=== PATIENT | male | born 1940 | race African-American/Black ===

== ENCOUNTER 2018-06-05 07:51 | Outpatient (CLI) | payer BC, MEDICARE ==
[2018-06-05 13:57] LABS: #Basophils 0.1 thou/uL (0.0-0.2); #Eosinphils 0.1 thou/uL (0.0-0.7); #Lymphocytes 1.4 thou/uL (1.20-3.40); #Monocytes 0.5 thou/uL (0.11-0.59); #Neutrophils 3.2 thou/uL (1.40-6.50); %Basophils 1.3 % (0.0-1.0); %Eosinophils 2.5 % (0.0-10.0); %Lymphocytes 26.3 % (21.0-51.0); %Monocytes 9.3 % (0.0-10.0); %Neutrophils 60.7 % (42.0-75.0); Hemoglobin 16.4 g/dL (14.0-18.0); Mean Corpuscular HGB CONC 32.5 g/dL (32.0-36.0); Mean Corpuscular Hemoglobin 31.3 pg (27.0-31.0); Mean Corpuscular Volume 96.4 fL (78.0-98.0); Mean Platelet Volume 8.9 fL (7.4-10.4); Platelet Count 184 thou/uL (130-400); RBC Distribution Width 12.6 % (11.5-14.5); Red Blood Cell (RBC) Count 5.24 mill/uL (4.70-6.10); White Blood Cell (WBC) Count 5.3 thou/uL (4.8-10.8)
[2018-06-05 14:01] LABS: Bilirubin Negative (Negative); Blood, Urine Negative (Negative); Clarity CLEAR (Clear); Glucose, Urine (Dipstick) Negative (Negative); Leukocyte Negative (Negative); Nitrite Negative (Negative); Protein, Urine (Dipstick) Negative (Neg-Trace); Specific Gravity, Urine 1.027 (1.002-1.036); Urobilinogen 0.2 mg/dL (0.2-1.0); pH, Urine 5.5 (5.0-9.0)
[2018-06-05 14:04] LABS: Prothrombin Time 12.8 SEC (12.0-14.7)
[2018-06-05 14:05] LABS: Bacteria/HPF None Seen HPF (None Seen); Hyaline Casts/LPF 0-3 HYALINE CAST LPF (0-3 Hyaline); Pathc Cast-AUWi Flag 0.14 (0-2.49); RBC/HPF 0-3 HPF (0-3); Squamous Epithelial None Seen HPF (0-3); WBC/HPF None Seen HPF (0-3)
[2018-06-05 14:17] LABS: Anion Gap 12 mmol/L (10-20); BUN (Urea Nitrogen) 19 mg/dL (8.4-25.7); Calc. Creatinine Clearance 0 mL/min (70-130); Calcium 10.3 mg/dL (7.8-10.44); Carbon Dioxide 23 mmol/L (23-31); Chloride 106 mmol/L (98-107); Estimated GFR-MDRD 88; Glucose 109 mg/dL (83-110); Potassium 4.2 mmol/L (3.5-5.1); Sodium 137 mmol/L (136-145)
--- NOTE | 2018-06-05 17:11 | EKG ---
Test Reason : Blood Pressure : / mmHG Vent. Rate : 060 BPM Atrial Rate : 060 BPM P-R Int : 226 ms QRS Dur : 088 ms QT Int : 378 ms P-R-T Axes : 060 063 049 degrees QTc Int : 378 ms Sinus rhythm with 1st degree A-V block Possible Anterior infarct , age undetermined Abnormal ECG When compared with ECG of 20-MAR-2016 09:36, No significant change was found Confirmed by ARDEN PARKER, . SRosmery ([id number]) on 06/05/2018 5:11:15 PM Referred By: CLIFTON Confirmed By:DR. Blanca HER MD
== END 2018-06-05 07:52 | disposition home or self-care (01) ==
LOC: LABBT 07:51
PROVIDERS: ATTEND Orthopaedic Surgery
DX: Z01.818 Encounter for other preprocedural examination (principal); M16.11 Unilateral primary osteoarthritis, right hip
CPT/HCPCS: 80048; 81001; 85025; 85610; 87081; 93005; 93010

== ENCOUNTER 2018-06-05 13:15 | Inpatient (IN) | payer BC, MEDICARE ==
--- NOTE | 2018-06-12 09:01 | HP ---
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 Pain is now progressed to the point it is causing difficulty getting dressed, getting in and out of vehicle, and putting shoes on and walking. He has had previous left total hip replacement in March 2016 with good results. PAST MEDICAL HISTORY: The patient has had previous left total hip replacement and right total knee replacement. He has a history of chronic back pain, controlled with a spinal cord stimulator placed by Dr. Gallagher. He had a history of hypertension. CURRENT MEDICATIONS: Include, 1. Amlodipine. 2. Valsartan. 3. Meloxicam. ALLERGIES: HE HAS NO KNOWN ALLERGIES. FAMILY HISTORY: Otherwise unremarkable. SOCIAL HISTORY: Otherwise unremarkable. REVIEW OF SYSTEMS: Otherwise unremarkable. PHYSICAL EXAMINATION: GENERAL: Healthy male. HEENT: Unremarkable. NECK: Supple. CHEST: Clear. HEART: Regular rate and rhythm. ABDOMEN: Soft and nontender. RECTAL: Deferred. GENITAL: Deferred. EXTREMITIES: Pertinent findings related to the right hip. Leg length appeared to be equal. There is tenderness in the anterior hip. There is decreased range of motion of the right hip and groin pain with internal rotation. There is a right antalgic gait. NEUROVASCULAR: Intact. DIAGNOSTIC STUDIES: X-rays of the right hip revealed severe degenerative arthritis with no joint space remaining with progression from previous x-rays. IMPRESSION: 1. Degenerative arthritis of the right hip. 2. Status post left total hip replacement. 3. Status post right total knee replacement. 4. History of hypertension. PLAN: Right total hip replacement. The nature of the surgery, length of recovery, and potential complications such as infection, loss of motion, incomplete relief, neurovascular injury, thromboembolic phenomena, leg length discrepancy, possible transfusion, and need for revision have been discussed in detail. Job ID: [id number]
[2018-07-10 09:16] VITALS: BMI 30.4
--- NOTE | 2018-07-17 09:19 | HP ---
HISTORY OF PRESENT ILLNESS: The patient is a 78-year-old male with a long history of progressive problems with his right hip injury. He has had progressive symptoms despite rest, restriction of activities, lifestyle adjustments, and use of a cane. He was scheduled for total hip replacement several weeks ago, but had a flare-up of gout in his left knee and left foot, and this has now resolved with the use of indomethacin. He has continued to have progressive problems with his right hip and is admitted at this time for a total hip replacement. PAST MEDICAL HISTORY: Please see the old chart. The patient has had previous left total hip replacement and right total knee replacement with good results. The patient has a history of chronic back problems and has a spinal cord stimulator. He has had previous carpal tunnel release. He has a history of hypertension and gout. MEDICATIONS: Include: 1. Amlodipine. 2. Indomethacin, which will be followed by use of resumption of meloxicam after he is finished with this. 3. Hydrocodone for pain. ALLERGIES: HE HAS NO KNOWN ALLERGIES. FAMILY HISTORY: Otherwise, unremarkable. SOCIAL HISTORY: Otherwise, unremarkable. REVIEW OF SYSTEMS: Otherwise, unremarkable. PHYSICAL EXAMINATION: GENERAL: A healthy male. HEENT: Unremarkable. NECK: Supple. CHEST: Clear. HEART: Regular rate and rhythm. ABDOMEN: Soft and nontender. RECTAL: Deferred. GENITAL: Deferred. EXTREMITIES: Pertinent findings related to the right hip. Leg lengths are equal. There is tenderness in the right groin. There is a right antalgic gait. There is decreased range of motion of the right hip and groin pain with internal rotation. NEUROVASCULAR: Intact. DIAGNOSTIC STUDIES: X-rays of the right hip revealed severe degenerative arthritis. IMPRESSION: 1. Degenerative arthritis, right hip. 2. Status post left total hip replacement. 3. Status post right total knee replacement. 4. History of gout. 5. History of hypertension. PLAN: Right total hip replacement. The nature of the surgery, length of recovery, and potential complications such as infection, loss of motion, incomplete relief, thromboembolic phenomenon, leg length discrepancy, possible transfusion, and need for revision have been discussed in detail with the patient and his . Job ID: [id number]
[2018-07-21] MEDS ORDERED: Vancomycin HCl 1.5 GM in Sodium Chloride 0.9% 250 ML 300 ML IVPB SCH ×2 (08:00→20:00)
[2018-07-21] MEDS ORDERED: CEFAZOLIN 2 GM in Premix Bag 1 BAG IVPB SCH (08:00)
[2018-07-21] MEDS ORDERED: Tranexamic Acid 1,000 MG/10 ML VIAL ONE ×2 (08:06→11:12)
[2018-07-21] MEDS ORDERED: Sodium Chloride 0.9% 100 ML ONE (08:06)
[2018-07-21] MEDS ORDERED: Fentanyl 100 MCG/2 ML VIAL ONE ×3 (09:25→11:13)
[2018-07-21] MEDS ORDERED: diphenhydrAMINE 50 MG/ML VIAL IVP PRN (10:14)
[2018-07-21] MEDS ORDERED: Promethazine HCl 25 MG/ML VIAL IM PRN ×2 (10:14)
[2018-07-21] MEDS ORDERED: Naloxone HCl 0.4 mg/ml Vial IV PRN (10:14)
[2018-07-21] MEDS ORDERED: Zolpidem Tartrate 5 MG TAB PO PRN ×2 (10:14→12:19)
[2018-07-21] MEDS ORDERED: diphenhydrAMINE 50 MG/ML VIAL IM PRN (10:14)
[2018-07-21] MEDS ORDERED: Ondansetron PF 4 MG/2 ML Vial IVP PRN ×2 (10:14→12:19)
[2018-07-21] MEDS ORDERED: Ondansetron HCl/PF 4 MG/2 ML Vial IVP PRN (10:14)
[2018-07-21] MEDS ORDERED: diphenhydrAMINE 25 MG CAP PO PRN ×2 (10:14→12:19)
[2018-07-21] MEDS ORDERED: fentaNYL Citrate/PF 2,000 MCG in Sodium Chloride 0.9% 60 ML IV PRN (10:14)
[2018-07-21] MEDS ORDERED: Promethazine HCl 25 MG/ML VIAL SLOW IVP PRN ×2 (10:14→12:19)
[2018-07-21] MEDS ORDERED: Communication Order-Pharmacy FS SCH (10:15)
[2018-07-21] MEDS ORDERED: Lidocaine 1% PF 5 ML VIAL ONE (10:31)
[2018-07-21] MEDS ORDERED: ePHEDrine 50 MG/ML VIAL ONE (10:31)
[2018-07-21] MEDS ORDERED: Glycopyrrolate 0.2 MG/ML 5 ML SYRINGE ONE (10:31)
[2018-07-21] MEDS ORDERED: Rocuronium Bromide 10 MG/ML (10ML VIAL) ONE (10:31)
[2018-07-21] MEDS ORDERED: Ondansetron PF 4 MG/2 ML Vial ONE (10:31)
[2018-07-21] MEDS ORDERED: PROPOFOL 200 MG/20 ML VIAL ONE (10:31)
[2018-07-21] MEDS ORDERED: Tranexamic Acid 1,000 MG in Sodium Chloride 0.9% 100 ML IVPB SCH ×2 (11:15→12:19)
[2018-07-21] MEDS ORDERED: Fentanyl 100 MCG/2 ML VIAL SLOW IVP PRN ×2 (12:19)
[2018-07-21] MEDS ORDERED: Acetaminophen 325 MG TAB PO PRN (12:19)
[2018-07-21] MEDS ORDERED: Milk Of Magnesia 30 ML UDCUP PO PRN (12:19)
[2018-07-21] MEDS ORDERED: HYDROcodone/Acetaminophen 10/325 mg Tablet PO PRN ×2 (12:19)
[2018-07-21] MEDS ORDERED: traMADol HCl 50 MG TAB PO PRN (12:19)
[2018-07-21] MEDS ORDERED: Multivitamin W/ Minerals 1 TAB PO SCH (12:30)
[2018-07-21] MEDS ORDERED: Aspirin 81 mg Enteric Coated Tablet PO SCH (12:30)
[2018-07-21] MEDS ORDERED: Ferrous Gluconate 324 MG TAB PO SCH (12:30)
[2018-07-21] MEDS ORDERED: Senokot S 8.6-50 MG TAB PO SCH (12:30)
[2018-07-21] MEDS: Sodium Chloride 0.9% 1,000 ML IV SCH ×2 (12:33→21:17)
[2018-07-21] MEDS ORDERED: Amlodipine 5 MG TAB PO SCH (12:45)
[2018-07-21] MEDS ORDERED: Valsartan 80 MG TAB PO SCH (12:45)
[2018-07-21] MEDS: Ketorolac Tromethamine 30 MG/ML VIAL IVP SCH ×2 (13:01→17:27)
--- NOTE | 2018-07-21 13:23 | RAD ---
TWO TO 3 VIEW RIGHT HIP: INDICATION: Postop total hip. FINDINGS: Right hip prosthesis is present appropriately aligned without acute hardware complication. There is an electronic device overlying the right pelvis. Soft tissue air is seen. Cross-table view reveals partial visualization of superimposed left hip prosthesis. IMPRESSION: Postoperative right hip without acute hardware complication. POS: [facility]
--- NOTE | 2018-07-21 13:36 | OP ---
DATE OF PROCEDURE: 07/21/2018 FOOD SERVICES MANAGER: Arnold Mcmillan PA-C. ANESTHESIA: General. PREOPERATIVE DIAGNOSIS: Degenerative arthritis, right hip. POSTOPERATIVE DIAGNOSIS: Degenerative arthritis, right hip. PROCEDURE PERFORMED: Right total hip replacement with uncemented [place] Trident PSL acetabular component, 58 mm with X3 polyethylene liner and uncemented [place] Accolade femoral stem #4 with 132 degree neck angle trunnion with 36 mm standard neck length metal femoral head. DESCRIPTION OF PROCEDURE: After satisfactory anesthesia was induced in supine position, sequential compression devices were placed on the nonoperative leg throughout the procedure. The patient was placed in lateral decubitus and this position was held with a hip positioning device. The right hip was then prepped and draped in routine sterile fashion. The hip was approached through a lateral curvilinear incision, centered over the greater trochanter, carried down through the subcutaneous tissues, and bleeding points were controlled with Bovie cautery. IT band and gluteal fascia were split in line with the skin incision. A direct lateral approach to the hip joint was accomplished by dividing the anterior third of the gluteus medius and minimus tendons with the Bovie cautery by reflecting the single flap anteriorly and medially along with the vastus lateralis. Anterior capsulectomy was performed, and the hip was dislocated anteriorly. There was marked degenerative arthritis of the hip. The femoral neck was osteotomized with oscillating saw using a trial prosthesis as a guide. The acetabulum was exposed and cleared of all soft tissue and rim osteophytes. It was then reamed in a sequential fashion with prior reamers down to bleeding subchondral bone to a total of 58 mm. It was felt that a 58 mm Trident PSL outer shell to be placed in a press-fit fashion. The permanent component was then hammered in position, and there was good fit and stability of the implant and the permanent X3 polyethylene liner was then snapped into position. The proximal femur was exposed and opened with a box osteotome and then rasped in sequence to accept a #4 Accolade femoral rasp. Trial reduction with 132 degree neck angle trunnion and the standard neck length, 36 mm head gave appropriate size, fit, and stability. The trial components were removed. It was copiously irrigated with pulsatile lavage. The permanent #4 Accolade stem was then hammered in position. There was good fit and stability. The permanent 36 mm standard neck length metal head was then placed on the trunnion and the hip again reduced and found to be stable. The wound was again irrigated. The abductors were repaired with interrupted #2 Vicryl. The ID band and gluteal fascia were closed with interrupted #2 Vicryl and a running #2 Quill. Subcutaneous tissues were closed with a running 0 Quill suture. The skin closed with running subcuticular 3-0 Monoderm and SurgiSeal skin adhesive. A sterile bulky dressing was applied. The patient turned to the supine position and a pillow placed between his legs. Sequential compression device was placed on the operated leg and he was awakened, taken to the recovery room in stable condition. There were no apparent intraoperative complications. The estimated blood loss was 300 mL. Job ID: [id number]
[2018-07-21] MEDS: CEFAZOLIN 2 GM in Premix Bag 1 BAG IVPB SCH (17:22)
[2018-07-21] MEDS: Aspirin 81 mg Enteric Coated Tablet PO SCH (21:23)
[2018-07-21] MEDS: Senokot S 8.6-50 MG TAB PO SCH (21:23)
[2018-07-21] MEDS: Ferrous Gluconate 324 MG TAB PO SCH (21:23)
[2018-07-22] MEDS: CEFAZOLIN 2 GM in Premix Bag 1 BAG IVPB SCH (00:48)
[2018-07-22] MEDS: Ketorolac Tromethamine 30 MG/ML VIAL IVP SCH ×5 (00:49→23:38)
[2018-07-22 05:27] LABS: Hemoglobin 13.3 g/dL (14.0-18.0); Mean Corpuscular HGB CONC 32.7 g/dL (32.0-36.0); Mean Corpuscular Hemoglobin 30.9 pg (27.0-31.0); Mean Corpuscular Volume 94.6 fL (78.0-98.0); Platelet Count 137 thou/uL (130-400); RBC Distribution Width 13.3 % (11.5-14.5); Red Blood Cell (RBC) Count 4.31 mill/uL (4.70-6.10)
[2018-07-22] MEDS ORDERED: Tamsulosin HCl 0.4 MG CAP PO SCH (07:06)
[2018-07-22] MEDS: Sodium Chloride 0.9% 1,000 ML IV SCH ×3 (07:53→19:00)
[2018-07-22] MEDS: Valsartan 80 MG TAB PO SCH (08:01)
[2018-07-22] MEDS: Senokot S 8.6-50 MG TAB PO SCH ×2 (08:01→21:11)
[2018-07-22] MEDS: Multivitamin W/ Minerals 1 TAB PO SCH (08:02)
[2018-07-22] MEDS: Amlodipine 5 MG TAB PO SCH (08:02)
[2018-07-22] MEDS: Ferrous Gluconate 324 MG TAB PO SCH ×2 (08:02→21:11)
[2018-07-22] MEDS: Aspirin 81 mg Enteric Coated Tablet PO SCH ×2 (08:10→21:11)
[2018-07-22] MEDS ORDERED: Prevnar 13-Val Conj/PF 0.5 ML SYRINGE IM ONE (09:00)
[2018-07-22] MEDS ORDERED: hydrALAZINE 20 MG/ML VIAL SLOW IVP PRN (13:38)
--- NOTE | 2018-07-22 14:05 | CON ---
DATE OF CONSULTATION: PRIMARY CARE PROVIDER: Miguel Mendoza MD. CHIEF COMPLAINT: Medical management. HISTORY OF PRESENT ILLNESS: Mr. Sosa is a pleasant 78-year-old gentleman who was seen at [facility] on July 22, 2018. He has been admitted for elective right hip replacement. He denies any chest pain or shortness of breath. He denies any fevers or chills. He reports pain in the right hip while ambulating, 8-9/10. REVIEW OF SYSTEMS: All other systems reviewed and found to be negative. PAST MEDICAL HISTORY: Significant for hypertension, dyslipidemia, coronary artery disease. PAST SURGICAL HISTORY: Significant coronary artery bypass graft, total right knee replacement, back surgery, carpal tunnel release on right side, gallbladder removal and right eye surgery. FAMILY HISTORY: Significant for hypertension and lung cancer in his father. SOCIAL HISTORY: The patient drinks alcohol 1-2 times a week. He denies any tobacco use or recreational drug use. ALLERGIES: SHELLFISH. HOME MEDICATIONS: 1. Amlodipine/valsartan 5/320 mg daily. 2. Indomethacin 25 mg 3 times daily. 3. Milk of magnesia p.r.n. PHYSICAL EXAMINATION: GENERAL: On examination, Mr. Sosa is awake and alert, not in acute distress. VITAL SIGNS: Blood pressure is 113/61, pulse 67, respiratory rate 18, oxygen saturation 97% on room air. He is afebrile. EYES: No scleral icterus, no conjunctival pallor. ENT: Moist mucosal membranes. No oropharyngeal erythema or exudates. NECK: Supple, nontender, trachea is midline. RESPIRATORY: Accessory muscles of breathing are not active. Chest wall movements are symmetric bilaterally. LUNGS: Clear to auscultation without wheeze, rhonchi, or crepitations. CARDIOVASCULAR: S1 and S2 are heard, regular. Peripheral pulses palpable. No carotid bruit. No pericardial rub. ABDOMEN: Soft, nontender, bowel sounds heard. NEUROLOGIC: Cranial nerves 2 through 12 are intact. MUSCULOSKELETAL: Status post right hip surgery. SKIN: No rashes or subcutaneous nodules. LYMPHATIC: No cervical lymphadenopathy. PSYCHIATRIC: Normal mood, normal affect, the patient is oriented to person, place, and time. LABORATORY DATA: Mr. Sosa's labs and investigations were reviewed. He has normal white count, normocytic anemia with hemoglobin 13.3, and normal platelet count. ASSESSMENT AND PLAN: Mr. Sosa is a pleasant 78-year-old gentleman who was seen at [facility] on July 22, 2018, for management of medical comorbidities following right hip surgery. His problem list includes: 1. Hypertension: Mr. Sosa has a history of hypertension. Blood pressure is well controlled at this time on his home medications. We will add p.r.n. hydralazine for blood pressure spikes. 2. Arthritis: Status post right hip surgery. 3. The patient also had episode of urinary retention overnight and currently has a Cueva catheter, which will be discontinued prior to voiding trial. Many thanks for allowing me to participate in your patient's care. Please feel free to contact me with any questions or concerns. LEVEL OF RISK: Moderate. LEVEL OF COMPLEXITY: Moderate. Job ID: [id number] MTDD
--- NOTE | 2018-07-22 14:21 | PRG ---
DATE OF SERVICE: 07/22/2018 SUBJECTIVE: Mr. Vela is a 78-year-old white male who is postop day #1 from a right total hip arthroplasty. He is doing really well. He has no complaints. His pain has been controlled overnight. OBJECTIVE: VITAL SIGNS: Temperature is 98.3, pulse 67, respiratory rate is 18, nonlabored, blood pressure is 113/61. GENERAL: He is alert and oriented to person, place, time, situation, grossly nonfocal. MUSCULOSKELETAL: His incision is clean and closed, not having any strike through. LABORATORY DATA: Hemoglobin and hematocrit 13.3 and 40.8. IMPRESSION: A 78-year-old male, postop day #1, right total hip arthroplasty, doing well. PLAN: 1. Continue current care. 2. Discharge tomorrow. Job ID: [id number]
[2018-07-23] MEDS: Ketorolac Tromethamine 30 MG/ML VIAL IVP SCH ×2 (06:47→14:51)
[2018-07-23 08:06] VITALS: TEMP 98.1
[2018-07-23] MEDS: Multivitamin W/ Minerals 1 TAB PO SCH (08:14)
[2018-07-23] MEDS: Aspirin 81 mg Enteric Coated Tablet PO SCH (08:15)
[2018-07-23] MEDS: Senokot S 8.6-50 MG TAB PO SCH (08:15)
[2018-07-23] MEDS: Ferrous Gluconate 324 MG TAB PO SCH (08:16)
[2018-07-23] MEDS ORDERED: Tamsulosin HCl 0.4 MG CAP PO SCH (09:00)
[2018-07-23] MEDS ORDERED: HYDROcodone/Acetaminophen 10/325 mg Tablet PO PRN ×2 (10:18)
[2018-07-23] MEDS: Sodium Chloride 0.9% 1,000 ML IV SCH (12:58)
[2018-07-23] MEDS: Valsartan 80 MG TAB PO SCH (12:58)
[2018-07-23] MEDS: Amlodipine 5 MG TAB PO SCH (12:59)
[2018-07-23 14:46] VITALS: BP 112/60
[2018-07-24] MEDS ORDERED: Valsartan 80 MG TAB PO SCH (09:00)
[2018-07-24] MEDS ORDERED: Amlodipine 5 MG TAB PO SCH (09:00)
== END 2018-07-23 14:48 | disposition home or self-care (01) | DRG 470 ==
LOC: EEVIPCON 06-16 13:15 → SURG A 07-21 06:51 → SJJU 07-21 11:33
PROVIDERS: ADMIT Orthopaedic Surgery; ATTEND Orthopaedic Surgery
PROC: 0SR901A Replacement of Right Hip Joint with Metal Synthetic Substitute, Uncemented, Open Approach (ICD-10-PCS; principal; 2018-07-21)
DX: M16.11 Unilateral primary osteoarthritis, right hip (principal); G89.29 Other chronic pain; I10 Essential (primary) hypertension; R33.9 Retention of urine, unspecified; M10.9 Gout, unspecified; Z96.642 Presence of left artificial hip joint; Z96.651 Presence of right artificial knee joint
CPT/HCPCS: 36415; 85027; 86850; 86900; 86901; 90471; 90670; C1776; G0009; J0131; J1885; J2001; J2405; J2704; J3010; J3370; J3490; J7050

== ENCOUNTER 2018-06-15 10:56 | Emergency (ER) | payer BC, MEDICARE ==
--- NOTE | 2018-06-15 11:41 | RAD ---
FOUR VIEWS OF THE LEFT KNEE: COMPARISON: None. HISTORY: Left hip replacement. Left knee pain and swelling for 2 days. FINDINGS: Four views left knee show no evidence of acute fracture or dislocation. There is a small knee effusi on. Surrounding soft tissue swelling is seen. IMPRESSION: Small knee effusion without underlying acute osseous abnormality. POS: [facility]
[2018-06-15] MEDS ORDERED: Acetaminophen 500 MG TAB ONE (11:57)
[2018-06-15] MEDS ORDERED: Morphine 4 MG/ML VIAL ONE (11:57)
[2018-06-15 11:58] LABS: #Lymphocytes 1.1 thou/uL (1.20-3.40); #Monocytes 1.3 thou/uL (0.11-0.59); #Neutrophils 9.1 thou/uL (1.40-6.50); %Basophils 0.1 % (0.0-1.0); %Eosinophils 0.3 % (0.0-10.0); %Lymphocytes 9.1 % (21.0-51.0); %Monocytes 10.9 % (0.0-10.0); %Neutrophils 79.5 % (42.0-75.0); Hemoglobin 16.9 g/dL (14.0-18.0); Mean Corpuscular HGB CONC 32.7 g/dL (32.0-36.0); Mean Corpuscular Hemoglobin 31.4 pg (27.0-31.0); Mean Corpuscular Volume 95.9 fL (78.0-98.0); Platelet Count 185 thou/uL (130-400); RBC Distribution Width 12.7 % (11.5-14.5); White Blood Cell (WBC) Count 11.5 thou/uL (4.8-10.8)
[2018-06-15 12:20] LABS: ALT (SGPT) 32 U/L (8-55); AST (SGOT) 25 U/L (5-34); Albumin 4.2 g/dL (3.4-4.8); Alkaline Phosphatase 88 U/L (40-150); Anion Gap 15 mmol/L (10-20); BUN (Urea Nitrogen) 18 mg/dL (8.4-25.7); Bilirubin, Total 2.4 mg/dL (0.2-1.2); Calc. Creatinine Clearance 0 mL/min (70-130); Calcium 11.1 mg/dL (7.8-10.44); Carbon Dioxide 24 mmol/L (23-31); Chloride 102 mmol/L (98-107); Estimated GFR-MDRD 80; Globulin 3.3 g/dL (2.4-3.5); Glucose 120 mg/dL (83-110); Protein, Total 7.5 g/dL (5.8-8.1); Sodium 136 mmol/L (136-145)
--- NOTE | 2018-06-15 13:59 | ULT ---
VENOUS DUPLEX SONOGRAM LEFT LOWER EXTREMITY: HISTORY: Left leg pain and edema. FINDINGS: The left common femoral vein and greater saphenous junction were evaluated along with the femoral, de ep femoral, popliteal, and posterior tibial veins. There is good color and spectral Doppler flow, co mpression, and augmentation. IMPRESSION: No sonographic evidence of deep vein thrombosis within the left lower extremity. POS: [facility]
--- NOTE | 2018-06-15 14:40 | RAD ---
SINGLE VIEW OF THE CHEST: COMPARISON: None. HISTORY: Right hip replacement tomorrow. Left lower extremity pain and swelling for 2 days. Fever. FINDINGS: Single view of the chest shows a normal sized cardiomediastinal silhouette. There is no evidence of c onsolidation, mass, or pleural effusion. The bones are unremarkable. IMPRESSION: No evidence of acute cardiopulmonary disease. POS: [facility]
[2018-06-15] MEDS ORDERED: cefTRIAXone\\ROCEPHIN 1 GM VIAL ONE (15:02)
[2018-06-15] MEDS ORDERED: Lidocaine 1% PF 5 ML VIAL ONE (15:02)
== END 2018-06-15 16:03 | disposition home or self-care (01) ==
LOC: ERS 10:56
DX: L03.116 Cellulitis of left lower limb (principal); I10 Essential (primary) hypertension; I89.0 Lymphedema, not elsewhere classified; F17.220 Nicotine dependence, chewing tobacco, uncomplicated
CPT/HCPCS: 36415; 71045; 80053; 83605; 85025; 87040; 87804; 96372; J0696; J2001; J2270

== ENCOUNTER 2018-07-10 09:01 | Outpatient (CLI) | payer BC, MEDICARE ==
[2018-07-10 10:45] LABS: #Eosinphils 0.3 thou/uL (0.0-0.7); #Lymphocytes 1.3 thou/uL (1.20-3.40); #Monocytes 0.6 thou/uL (0.11-0.59); #Neutrophils 3.3 thou/uL (1.40-6.50); %Eosinophils 4.8 % (0.0-10.0); %Lymphocytes 23.5 % (21.0-51.0); %Monocytes 11.3 % (0.0-10.0); %Neutrophils 60.3 % (42.0-75.0); Hemoglobin 15.7 g/dL (14.0-18.0); Mean Corpuscular HGB CONC 32.8 g/dL (32.0-36.0); Mean Corpuscular Hemoglobin 30.4 pg (27.0-31.0); Mean Corpuscular Volume 92.7 fL (78.0-98.0); Mean Platelet Volume 9.6 fL (7.4-10.4); Platelet Count 183 thou/uL (130-400); RBC Distribution Width 12.8 % (11.5-14.5); Red Blood Cell (RBC) Count 5.17 mill/uL (4.70-6.10); White Blood Cell (WBC) Count 5.5 thou/uL (4.8-10.8)
[2018-07-10 10:50] LABS: INR-International Normal Ratio 0.9; Prothrombin Time 12.5 SEC (12.0-14.7)
[2018-07-10 11:11] LABS: Anion Gap 13 mmol/L (10-20); BUN (Urea Nitrogen) 21 mg/dL (8.4-25.7); Calc. Creatinine Clearance 0 mL/min (70-130); Carbon Dioxide 24 mmol/L (23-31); Chloride 108 mmol/L (98-107); Estimated GFR-MDRD 83; Glucose 115 mg/dL (83-110); Potassium 4.5 mmol/L (3.5-5.1); Sodium 140 mmol/L (136-145)
[2018-07-10 12:35] LABS: Bilirubin Small (Negative); Blood, Urine Negative (Negative); Clarity CLOUDY (Clear); Glucose, Urine (Dipstick) Negative (Negative); Leukocyte Negative (Negative); Nitrite Negative (Negative); Protein, Urine (Dipstick) 30 mg/dL (Neg-Trace); Specific Gravity, Urine 1.043 (1.002-1.036)
[2018-07-10 12:38] LABS: Bacteria/HPF None Seen HPF (None Seen); Pathc Cast-AUWi Flag 0.68 (0-2.49); Squamous Epithelial 0-3 HPF (0-3); WBC/HPF 0-3 HPF (0-3)
--- NOTE | 2018-07-10 13:06 | EKG ---
Test Reason : Blood Pressure : / mmHG Vent. Rate : 054 BPM Atrial Rate : 054 BPM P-R Int : 208 ms QRS Dur : 084 ms QT Int : 378 ms P-R-T Axes : 056 056 064 degrees QTc Int : 358 ms Sinus bradycardia Otherwise normal ECG Confirmed by KAITLYN SAHU ([id number]) on 07/10/2018 1:05:52 PM Referred By: CLIFTON Confirmed By:KAITLYN SAHU
[2018-07-10 14:21] LABS: Crystals/HPF 4+ CA OXALATE HPF (Negative)
[2018-07-10 14:23] LABS: Hyaline Casts/LPF 0-3 HYALINE CAST LPF (0-3 Hyaline); RBC/HPF 0-3 HPF (0-3)
== END 2018-07-10 09:02 | disposition home or self-care (01) ==
LOC: LABBT 09:01
PROVIDERS: ATTEND Orthopaedic Surgery
DX: Z01.818 Encounter for other preprocedural examination (principal); M16.11 Unilateral primary osteoarthritis, right hip
CPT/HCPCS: 80048; 81001; 85025; 85610; 86850; 86900; 86901; 87081; 93005; 93010

== ENCOUNTER 2020-04-21 14:35 | Outpatient (CLI) | payer MEDICARE ==
--- NOTE | 2020-04-21 15:55 | CT ---
Exam: Lumbar spine CT without contrast HISTORY: Back pain, times years. Pain radiates down the right leg. Patient has a spinal stimulator. E valuate for lumbar stenosis. FINDINGS: 5 lumbar type vertebrae. Lumbar spine vertebral body height is maintained. No fracture. No spondyloli sthesis. No spondylolysis. There is appropriate attenuation of the visualized paraspinal muscles. Hypodensities in the right mario alberto al cortex are incompletely evaluated and may represent cortical cysts. There is a hypodensity involving the right adrenal gland, with attenuation coefficient of 71 Hounsfield units. Incomplete ch aracterization. Dorsal column stimulator enters the central spinal canal at the T12-L1 level. Visualized sacrum and bony pelvis are intact. Sacral ala are preserved. T12-L1: No significant central canal stenosis. Patent bilateral neural foramina. L1-L2: Broad-based disc bulge. Moderate central canal stenosis. There is a right paracentral disc her niation with presumed mass effect and obscuration the traversing right L------- nerve root. Right neural foramen is patent. Mild left foraminal narrowing L2-L3: Mild to moderate loss of disc space height. Broad-based disc bulge, ligamentum flavum thickeni ng and facet hypertrophy result in moderate central canal stenosis. Right neural foramen is moderately narrowed. Mild left foraminal narrowing. L3-L4: Broad-based disc bulge abuts the thecal sac. There is ligamentum flavum thickening and facet h ypertrophy. Mild to moderate central canal stenosis. Posterior laminectomy defect is identified. Moderate bilateral neural foraminal narrowing L4-L5: Vacuum disc phenomenon with moderate loss of disc space height. Posterior laminectomy defect. Broad-based disc bulge with moderate central canal stenosis. Probable mass effect upon bilateral traversing L5 nerve roots. Moderate to severe bilateral neural foraminal narrowing L5-S1: Broad-based disc bulge abuts the thecal sac. Disc material encroaches upon the left and right subarticular zone. Contact upon both traversing S1 nerve roots without significant obscuration. Moderate bilateral neural foraminal narrowing IMPRESSION: Multilevel degenerative changes of the lumbar spine as described above Transcribed Date/Time: 04/21/2020 4:10 PM
== END 2020-04-21 14:36 | disposition home or self-care (01) ==
LOC: BICCT 14:35
PROVIDERS: ATTEND Nurse Practitioner Family
DX: M48.062 Spinal stenosis, lumbar region with neurogenic claudication (principal); M47.816 Spondylosis without myelopathy or radiculopathy, lumbar region
CPT/HCPCS: 72131

== ENCOUNTER 2020-07-19 07:12 | Outpatient (CLI) | payer MEDICARE ==
[2020-07-15 11:10] VITALS: BMI 32.1
[2020-07-19 08:34] VITALS: BP 208/88; TEMP 97.1
[2020-07-19] MEDS ORDERED: Iopamidol-M 200 41% 20 ML VIAL ONE (11:49)
== END 2020-07-19 10:00 | disposition home or self-care (01) ==
LOC: RAD 07:12
PROVIDERS: ATTEND Surgery
DX: M48.062 Spinal stenosis, lumbar region with neurogenic claudication (principal); M47.26 Other spondylosis with radiculopathy, lumbar region; M47.817 Spondylosis without myelopathy or radiculopathy, lumbosacral region; M54.5 Low back pain; N28.9 Disorder of kidney and ureter, unspecified; E27.8 Other specified disorders of adrenal gland; M43.16 Spondylolisthesis, lumbar region; Z98.890 Other specified postprocedural states
CPT/HCPCS: 62304; 72120; 72132; Q9966

== ENCOUNTER 2021-03-31 12:51 | Outpatient (CLI) | payer MEDICARE ==
[2021-03-31 14:43] LABS: Hemoglobin 15.7 g/dL (13.5-17.5); Mean Corpuscular HGB CONC 32.1 g/dL (32.0-36.0); Mean Corpuscular Hemoglobin 30.1 pg (27.0-33.0); Mean Corpuscular Volume 93.7 fl (81.2-95.1); Mean Platelet Volume 11.8 fl (7.4-10.4); Platelet Count 168 10x3/uL (150-450); RBC Distribution Width 13.2 % (11.5-14.5); Red Blood Cell (RBC) Count 5.22 10x6/uL (4.32-5.72); White Blood Cell (WBC) Count 5.4 10x3/uL (3.5-10.5)
[2021-03-31 14:49] LABS: INR-International Normal Ratio 0.9; PTT 25.8 sec (22.0-33.0); Prothrombin Time 10.4 sec (9.5-12.1)
[2021-03-31 14:52] LABS: Anion Gap 13 mmol/L (10-20); BUN (Urea Nitrogen) 22 mg/dL (8.4-25.7); Calc. Creatinine Clearance 0 mL/min (70-130); Carbon Dioxide 26 mmol/L (23-31); Chloride 108 mmol/L (98-107); Glucose 139 mg/dL (83-110); Potassium 4.7 mmol/L (3.5-5.1); Sodium 142 mmol/L (136-145)
[2021-03-31 23:21] LABS: SARS-CoV-2 PCR by NAA Not Detected (NotDetected)
== END 2021-03-31 12:52 | disposition home or self-care (01) ==
LOC: LABBT 12:51
PROVIDERS: ATTEND Surgery
DX: Z01.818 Encounter for other preprocedural examination (principal); Z20.822 Contact with and (suspected) exposure to COVID-19
CPT/HCPCS: 80048; 85027; 85610; 85730; 93005; U0003; U0005; 93010

== ENCOUNTER 2021-04-04 08:22 | Inpatient (IN) | payer MEDICARE ==
[2021-04-04] MEDS ORDERED: Thrombin 5000 UNITS/5 ML VIAL ONE ×4 (10:17→13:07)
[2021-04-04] MEDS ORDERED: Fentanyl 100 MCG/2 ML VIAL ONE ×4 (10:22→16:01)
[2021-04-04] MEDS ORDERED: ePHEDrine 50 MG/ML VIAL ONE (10:45)
[2021-04-04] MEDS ORDERED: PROPOFOL 200 MG/20 ML VIAL ONE (10:45)
[2021-04-04] MEDS ORDERED: Ondansetron PF 4 MG/2 ML Vial ONE (10:45)
[2021-04-04] MEDS ORDERED: Calcium Chloride 1 GM/10 ML Abboject SYRINGE ONE (10:45)
[2021-04-04] MEDS ORDERED: PHENYLEPHRINE-NS 100 MCG/ML 10 ML SYRINGE ONE (10:45)
[2021-04-04] MEDS ORDERED: diphenhydrAMINE 50 MG/ML VIAL ONE (10:45)
[2021-04-04] MEDS ORDERED: Dexamethasone 20 MG/5 ML VIAL ONE (10:45)
[2021-04-04] MEDS ORDERED: Glycopyrrolate 0.2 MG/ML 5 ML SYRINGE ONE (10:45)
[2021-04-04] MEDS ORDERED: Lidocaine 1% PF 5 ML VIAL ONE (10:45)
[2021-04-04] MEDS ORDERED: Rocuronium Bromide 10 MG/ML (10ML VIAL) ONE (10:45)
[2021-04-04] MEDS ORDERED: Phenylephrine 10 MG/ML VIAL ONE (13:51)
[2021-04-04] MEDS ORDERED: Acetaminophen 325 MG TAB PO PRN (14:19)
[2021-04-04] MEDS ORDERED: Acetaminophen/Codeine 30-300mg Tablet PO PRN (14:20)
[2021-04-04] MEDS ORDERED: tiZANidine HCl 4 MG TAB PO PRN (14:20)
[2021-04-04 15:03] LABS: Hemoglobin 14.8 g/dL (14.0-18.0)
[2021-04-04] MEDS ORDERED: tiZANidine HCl 4 MG TAB ONE (15:18)
[2021-04-04] MEDS ORDERED: Morphine 4 MG/ML VIAL ONE (15:34)
[2021-04-04] MEDS ORDERED: Morphine 4 MG/ML VIAL FS PRN (17:20)
[2021-04-04 18:00] VITALS: BMI 31.9
[2021-04-04] MEDS ORDERED: ceFAZolin Sodium/D5W 2 GM in Premix Bag 1 BAG IVPB SCH (18:00)
[2021-04-04] MEDS: Sodium Chloride 0.9% 1,000 ML IV SCH (18:06)
[2021-04-04] MEDS: CEFAZOLIN 2 GM, Admixture Fee 1 EACH in Sodium Chloride 0.9% 100 ML IVPB SCH (18:07)
[2021-04-05] MEDS: HYDROcodone/Acetaminophen 7.5/325 mg Tablet PO PRN (01:14)
[2021-04-05] MEDS: CEFAZOLIN 2 GM, Admixture Fee 1 EACH in Sodium Chloride 0.9% 100 ML IVPB SCH ×3 (03:09→20:21)
[2021-04-05] MEDS ORDERED: hydrALAZINE 20 MG/ML VIAL SLOW IVP PRN (05:29)
[2021-04-05 06:33] LABS: #Lymphocytes 1.1 thou/uL (1.20-3.40); #Monocytes 1.3 thou/uL (0.11-0.59); #Neutrophils 13.3 thou/uL (1.40-6.50); %Eosinophils 0.2 % (0.0-10.0); %Lymphocytes 7.2 % (21.0-51.0); %Monocytes 8.1 % (0.0-10.0); %Neutrophils 84.5 % (42.0-75.0); Hemoglobin 13.9 g/dL (14.0-18.0); Mean Corpuscular Hemoglobin 32.3 pg (27.0-31.0); Mean Platelet Volume 9.1 fL (7.4-10.4); Platelet Count 176 thou/uL (130-400); RBC Distribution Width 12.7 % (11.5-14.5); Red Blood Cell (RBC) Count 4.31 mill/uL (4.70-6.10); White Blood Cell (WBC) Count 15.7 thou/uL (4.8-10.8)
[2021-04-05 06:59] LABS: Anion Gap 16 mmol/L (10-20); BUN (Urea Nitrogen) 25 mg/dL (8.4-25.7); Calc. Creatinine Clearance 77 mL/min (70-130); Carbon Dioxide 18 mmol/L (23-31); Chloride 106 mmol/L (98-107); Glucose 115 mg/dL (83-110); Potassium 4.8 mmol/L (3.5-5.1); Sodium 135 mmol/L (136-145)
[2021-04-05] MEDS: Sodium Chloride 0.9% 1,000 ML IV SCH ×2 (07:28→17:10)
[2021-04-05] MEDS: Valsartan 80 MG TAB PO SCH (10:01)
[2021-04-05] MEDS: Tamsulosin HCl 0.4 MG CAP PO SCH (10:02)
[2021-04-05] MEDS: Allopurinol 300 MG TAB PO SCH (10:02)
[2021-04-05] MEDS: Amlodipine 5 MG TAB PO SCH (10:02)
[2021-04-06] MEDS: Sodium Chloride 0.9% 1,000 ML IV SCH ×3 (00:31→20:01)
[2021-04-06] MEDS: CEFAZOLIN 2 GM, Admixture Fee 1 EACH in Sodium Chloride 0.9% 100 ML IVPB SCH ×2 (02:53→11:53)
[2021-04-06] MEDS: Amlodipine 5 MG TAB PO SCH (08:39)
[2021-04-06] MEDS: Allopurinol 300 MG TAB PO SCH (08:39)
[2021-04-06] MEDS: Tamsulosin HCl 0.4 MG CAP PO SCH (08:39)
[2021-04-06] MEDS: Valsartan 80 MG TAB PO SCH (08:40)
[2021-04-06] MEDS: HYDROcodone/Acetaminophen 7.5/325 mg Tablet PO PRN (08:42)
[2021-04-06] MEDS: traMADol HCl 50 MG TAB PO PRN (15:18)
[2021-04-06] MEDS: ceFAZolin Sodium/D5W 2 GM in Premix Bag 1 BAG IVPB SCH (20:01)
[2021-04-07] MEDS: ceFAZolin Sodium/D5W 2 GM in Premix Bag 1 BAG IVPB SCH ×3 (03:53→20:07)
[2021-04-07] MEDS: Sodium Chloride 0.9% 1,000 ML IV SCH (05:55)
[2021-04-07] MEDS: Valsartan 80 MG TAB PO SCH (08:29)
[2021-04-07] MEDS: Amlodipine 5 MG TAB PO SCH (08:30)
[2021-04-07] MEDS: Allopurinol 300 MG TAB PO SCH (08:30)
[2021-04-07] MEDS: Tamsulosin HCl 0.4 MG CAP PO SCH (08:30)
[2021-04-07] MEDS: traMADol HCl 50 MG TAB PO PRN ×2 (08:31→17:31)
[2021-04-08] MEDS: traMADol HCl 50 MG TAB PO PRN ×2 (00:07→08:39)
[2021-04-08] MEDS: ceFAZolin Sodium/D5W 2 GM in Premix Bag 1 BAG IVPB SCH (04:21)
[2021-04-08] MEDS ORDERED: Labetalol HCl 100 MG/20 ML VIAL SLOW IVP PRN (08:18)
[2021-04-08] MEDS: Amlodipine 5 MG TAB PO SCH (08:36)
[2021-04-08] MEDS: Allopurinol 300 MG TAB PO SCH (08:36)
[2021-04-08] MEDS: Tamsulosin HCl 0.4 MG CAP PO SCH (08:36)
[2021-04-08] MEDS: Valsartan 80 MG TAB PO SCH (10:09)
[2021-04-09] MEDS: Amlodipine 5 MG TAB PO SCH (08:23)
[2021-04-09] MEDS: Tamsulosin HCl 0.4 MG CAP PO SCH (08:23)
[2021-04-09] MEDS: Valsartan 80 MG TAB PO SCH (08:24)
[2021-04-09] MEDS: Allopurinol 300 MG TAB PO SCH (08:24)
[2021-04-09] MEDS: Polyethylene Glycol 3350 17 GM Packet PO PRN (08:29)
[2021-04-09] MEDS: HYDROcodone/Acetaminophen 7.5/325 mg Tablet PO PRN (21:02)
[2021-04-10] MEDS: traMADol HCl 50 MG TAB PO PRN ×2 (09:21→15:52)
[2021-04-10] MEDS: Tamsulosin HCl 0.4 MG CAP PO SCH (09:22)
[2021-04-10] MEDS: Allopurinol 300 MG TAB PO SCH (09:22)
[2021-04-10] MEDS: Valsartan 80 MG TAB PO SCH (09:22)
[2021-04-10] MEDS: Amlodipine 5 MG TAB PO SCH (09:22)
[2021-04-10] MEDS: Polyethylene Glycol 3350 17 GM Packet PO PRN (09:25)
[2021-04-11] MEDS: Valsartan 80 MG TAB PO SCH (09:45)
[2021-04-11] MEDS: traMADol HCl 50 MG TAB PO PRN ×2 (09:45→16:29)
[2021-04-11] MEDS: Allopurinol 300 MG TAB PO SCH (09:46)
[2021-04-11] MEDS: Tamsulosin HCl 0.4 MG CAP PO SCH (09:46)
[2021-04-11] MEDS: Amlodipine 5 MG TAB PO SCH (09:46)
[2021-04-11 16:21] VITALS: BP 129/64; TEMP 98.2
== END 2021-04-11 18:33 | disposition home or self-care (01) | DRG 517 ==
LOC: SDC 08:22 → T4-B 14:19
PROVIDERS: ADMIT Surgery; ATTEND Surgery
PROC: 01NB0ZZ Release Lumbar Nerve, Open Approach (ICD-10-PCS; principal; 2021-04-04)
PROC: 01NR0ZZ Release Sacral Nerve, Open Approach (ICD-10-PCS; 2021-04-04)
DX: M48.062 Spinal stenosis, lumbar region with neurogenic claudication (principal); M54.16 Radiculopathy, lumbar region; I10 Essential (primary) hypertension; M10.9 Gout, unspecified; N40.0 Benign prostatic hyperplasia without lower urinary tract symptoms; E66.9 Obesity, unspecified; Z68.31 Body mass index [BMI] 31.0-31.9, adult; Z82.3 Family history of stroke; Z82.49 Family history of ischemic heart disease and other diseases of the circulatory system; Z79.899 Other long term (current) drug therapy; Z79.1 Long term (current) use of non-steroidal anti-inflammatories (NSAID); Z87.891 Personal history of nicotine dependence
CPT/HCPCS: 36415; 76000; 80048; 85014; 85018; 85025; 93970; J0360; J0690; J1100; J1200; J2270; J2370; J2405; J2704; J3010; J3370; J3490; J7050

== ENCOUNTER 2021-06-15 09:45 | Outpatient (CLI) | payer MEDICARE ==
[2021-06-15 20:33] LABS: SARS-CoV-2 PCR by NAA Not Detected (NotDetected)
== END 2021-06-15 09:46 | disposition home or self-care (01) ==
LOC: LABBT 09:45
PROVIDERS: ATTEND Anesthesiology Pain Medicine
DX: Z01.818 Encounter for other preprocedural examination (principal); Z20.822 Contact with and (suspected) exposure to COVID-19
CPT/HCPCS: 93005; U0003; U0005; 93010

== ENCOUNTER 2022-04-08 00:19 | Emergency (ER) | payer MEDICARE | END 2022-04-08 03:22 | disposition home or self-care (01) | LOC: ERS 00:19 | DX: S02.32XA Fracture of orbital floor, left side, initial encounter for closed fracture (principal); S02.832A Fracture of medial orbital wall, left side, initial encounter for closed fracture; S00.03XA Contusion of scalp, initial encounter; I10 Essential (primary) hypertension; F17.220 Nicotine dependence, chewing tobacco, uncomplicated; Y04.2XXA Assault by strike against or bumped into by another person, initial encounter | CPT/HCPCS: 70450; 70486; 72125; 90471 ==

== ENCOUNTER 2022-06-25 14:34 | Inpatient (IN) | payer MEDICARE ==
[2022-06-25] MEDS ORDERED: Cefepime 2 GM VIAL ONE (14:52)
[2022-06-25 15:03] LABS: #Lymphocytes 0.5 thou/uL (1.20-3.40); #Monocytes 0.6 thou/uL (0.11-0.59); #Neutrophils 3.9 thou/uL (1.40-6.50); %Eosinophils 0.2 % (0.0-10.0); %Lymphocytes 9.7 % (21.0-51.0); %Neutrophils 78.1 % (42.0-75.0); Mean Corpuscular HGB CONC 33.8 g/dL (32.0-36.0); Mean Corpuscular Hemoglobin 31.3 pg (27.0-31.0); Mean Corpuscular Volume 92.6 fl (78.0-98.0); Mean Platelet Volume 9.5 fL (7.4-10.4); Platelet Count 131 10x3/uL (130-400); Red Blood Cell (RBC) Count 4.48 mill/uL (4.70-6.10)
[2022-06-25 15:11] LABS: PTT 29.2 sec (22.9-36.1); Prothrombin Time 13.2 sec (12.0-14.7)
[2022-06-25 15:21] LABS: ALT (SGPT) 66 U/L (8-55); AST (SGOT) 201 U/L (5-34); Albumin 3.6 g/dL (3.4-4.8); Alkaline Phosphatase 64 U/L (40-110); Anion Gap 16 mmol/L (10-20); BUN (Urea Nitrogen) 31 mg/dL (8.4-25.7); Bilirubin, Total 0.8 mg/dL (0.2-1.2); Calc. Creatinine Clearance 0 mL/min (70-130); Calcium 10.5 mg/dL (7.8-10.44); Carbon Dioxide 25 mmol/L (23-31); Chloride 105 mmol/L (98-107); Estimated GFR 68; Globulin 2.8 g/dL (2.4-3.5); Glucose 83 mg/dL (83-110); Lipase 8 U/L (8-78); Magnesium 1.7 mg/dL (1.6-2.6); Potassium 4.6 mmol/L (3.5-5.1); Protein, Total 6.4 g/dL (5.8-8.1); Sodium 141 mmol/L (136-145)
[2022-06-25 15:25] LABS: Bacteria/HPF None Seen HPF (None Seen); Bilirubin Negative (Negative); Blood, Urine Negative (Negative); Clarity Clear (Clear); Glucose, Urine (Dipstick) Normal (Negative); Ketone, Urine Trace mg/dL (Negative); Leukocyte Negative Leu/uL (Negative); Nitrite Negative (Negative); Protein, Urine (Dipstick) 30 mg/dL (Neg-Trace); RBC/HPF 0-3 HPF (0-3); Specific Gravity, Urine 1.026 (1.002-1.036); Squamous Epithelial 0-3 HPF (0-3); Urobilinogen Normal mg/dL (Less than 2); WBC/HPF 0-3 HPF (0-3)
[2022-06-25 15:27] LABS: Actual Bicarbonate (HCO3a) 21.5 mEq/L (22-28); Analyzer IN Cardio ER; Base Excess (BEa) -1.4 mEq/L (-2.0 to +3.0); CO2 Tension 30.8 mmHg (35.0-45.0); Calcium, Ionized (arterial) 1.29 mmol/L (1.12-1.30); Carboxyhemoglobin (COHb) 0.1 gm% (0.0-3.0); Hemoglobin (Hb) 13.5 g/dL (14.0-18.0); Potassium - ABG Lab 4.37 mmol/L (3.70-5.30); pH, Arterial 7.46 (7.35-7.45)
[2022-06-25] MEDS ORDERED: Vancomycin 1 GM/200 ML (FROZEN) BAG ONE (15:38)
[2022-06-25 15:45] LABS: CKMB 17.3 ng/mL (0-6.6)
[2022-06-25 15:51] LABS: SARS-CoV-2 NAA Rapid Test DETECTED (NotDetected)
[2022-06-25] MEDS ORDERED: Dexamethasone 4 mg/ml Vial ONE (16:37)
[2022-06-25] MEDS ORDERED: Senokot S 8.6-50 MG TAB PO PRN (18:02)
[2022-06-25] MEDS ORDERED: Acetaminophen 325 MG TAB PO PRN (18:02)
[2022-06-25] MEDS ORDERED: guaiFENesin 200 MG TAB PO PRN (18:04)
[2022-06-25] MEDS ORDERED: Meloxicam 15 MG TAB PO PRN (18:05)
[2022-06-25 18:37] LABS: Lactic Acid 1.4 mmol/L (0.5-2.2)
[2022-06-25 19:11] VITALS: BMI 30.2
[2022-06-25 20:02] LABS: Amphetamine Not Detected (NotDetected); Barbiturates Screen Not Detected (NotDetected); Benzodiazepine Screen Not Detected (NotDetected); Cocaine Metabolite Screen Not Detected (NotDetected); Methadone Not Detected (NotDetected); Methamphetamine Not Detected (NotDetected); Opiate Screen Not Detected (NotDetected); Oxycodone Screen Not Detected (NotDetected); Phencyclidine (PCP) Not Detected (NotDetected); THC/Cannabinoid Screen Not Detected (NotDetected); Tricyclic Screen Not Detected (NotDetected)
[2022-06-25 20:43] LABS: Acetaminophen Less than 10.0 mcg/mL (10.0-30.0); Alcohol Less than 10 mg/dL (Less than 10); Salicylate Less than 8.0 mg/dL (15.0-30.0)
[2022-06-25 21:18] LABS: Troponin I 0.031 ng/mL (< 0.028)
[2022-06-25] MEDS: Sodium Chloride 0.9% 1,000 ML IV SCH (21:26)
[2022-06-25] MEDS: Famotidine 20 MG TAB PO SCH (21:27)
[2022-06-25] MEDS: NIRMATRELVIR 150 MG/RITONAVIR 100 MG PO SCH (22:39)
[2022-06-26] MEDS ORDERED: Cefepime 1 GM in Sodium Chloride 0.9% 100 ML IVPB SCH (03:00)
[2022-06-26 05:17] LABS: #Lymphocytes 0.3 thou/uL (1.20-3.40); #Monocytes 0.4 thou/uL (0.11-0.59); #Neutrophils 3.5 thou/uL (1.40-6.50); %Basophils 0.6 % (0.0-1.0); %Eosinophils 0.3 % (0.0-10.0); %Lymphocytes 7.3 % (21.0-51.0); %Monocytes 8.8 % (0.0-10.0); Hemoglobin 12.7 g/dL (14.0-18.0); Mean Corpuscular HGB CONC 33.8 g/dL (32.0-36.0); Mean Corpuscular Hemoglobin 31.6 pg (27.0-31.0); Mean Corpuscular Volume 93.4 fl (78.0-98.0); Mean Platelet Volume 9.5 fL (7.4-10.4); Platelet Count 118 10x3/uL (130-400); Red Blood Cell (RBC) Count 4.03 mill/uL (4.70-6.10); White Blood Cell (WBC) Count 4.2 10x3/uL (4.8-10.8)
[2022-06-26 05:37] LABS: ALT (SGPT) 63 U/L (8-55); AST (SGOT) 181 U/L (5-34); Alkaline Phosphatase 55 U/L (40-110); Anion Gap 14 mmol/L (10-20); BUN (Urea Nitrogen) 31 mg/dL (8.4-25.7); Bilirubin, Total 0.6 mg/dL (0.2-1.2); Calc. Creatinine Clearance 88 mL/min (70-130); Calcium 10.2 mg/dL (7.8-10.44); Carbon Dioxide 21 mmol/L (23-31); Chloride 107 mmol/L (98-107); Estimated GFR 75; Globulin 2.6 g/dL (2.4-3.5); Glucose 134 mg/dL (83-110); Potassium 4.3 mmol/L (3.5-5.1); Protein, Total 5.6 g/dL (5.8-8.1); Sodium 138 mmol/L (136-145)
[2022-06-26] MEDS: Valsartan 80 MG TAB PO SCH (09:26)
[2022-06-26] MEDS: Zinc Sulfate 220 MG CAP PO SCH (09:26)
[2022-06-26] MEDS: Famotidine 20 MG TAB PO SCH ×2 (09:26→20:23)
[2022-06-26] MEDS: Amlodipine 5 MG TAB PO SCH (09:26)
[2022-06-26] MEDS: Allopurinol 300 MG TAB PO SCH (09:26)
[2022-06-26] MEDS: Ascorbic Acid 500 mg Chewable Tablet PO SCH (09:26)
[2022-06-26] MEDS: Aspirin 81 mg Enteric Coated Tablet PO SCH (09:26)
[2022-06-26] MEDS: NIRMATRELVIR 150 MG/RITONAVIR 100 MG PO SCH ×2 (09:32→20:23)
[2022-06-26] MEDS: Sodium Chloride 0.9% 1,000 ML IV SCH (15:28)
[2022-06-26] MEDS: Cefepime 2 GM in Sodium Chloride 0.9% 100 ML IVPB SCH (15:34)
[2022-06-26] MEDS: VANCOMYCIN 2 GRAM/500 ML BAG 2 GM in Premix Bag 1 BAG IVPB SCH (20:23)
[2022-06-27] MEDS: Cefepime 2 GM in Sodium Chloride 0.9% 100 ML IVPB SCH ×2 (02:11→15:33)
[2022-06-27] MEDS: Melatonin 3 MG TAB PO PRN ×2 (02:11→21:06)
[2022-06-27 05:09] LABS: #Lymphocytes 0.4 thou/uL (1.20-3.40); #Monocytes 0.5 thou/uL (0.11-0.59); #Neutrophils 4.6 thou/uL (1.40-6.50); %Basophils 0.1 % (0.0-1.0); %Eosinophils 0.2 % (0.0-10.0); %Lymphocytes 6.4 % (21.0-51.0); %Monocytes 9.5 % (0.0-10.0); %Neutrophils 83.9 % (42.0-75.0); Hemoglobin 12.3 g/dL (14.0-18.0); Mean Corpuscular HGB CONC 33.3 g/dL (32.0-36.0); Mean Corpuscular Volume 93.2 fl (78.0-98.0); Platelet Count 146 10x3/uL (130-400); Red Blood Cell (RBC) Count 3.95 mill/uL (4.70-6.10); White Blood Cell (WBC) Count 5.4 10x3/uL (4.8-10.8)
[2022-06-27 05:33] LABS: ALT (SGPT) 50 U/L (8-55); AST (SGOT) 116 U/L (5-34); Albumin 3.1 g/dL (3.4-4.8); Alkaline Phosphatase 53 U/L (40-110); Anion Gap 8 mmol/L (10-20); BUN (Urea Nitrogen) 27 mg/dL (8.4-25.7); Bilirubin, Total 0.5 mg/dL (0.2-1.2); Calc. Creatinine Clearance 107 mL/min (70-130); Calcium 9.7 mg/dL (7.8-10.44); Carbon Dioxide 23 mmol/L (23-31); Chloride 108 mmol/L (98-107); Estimated GFR 88; Globulin 2.4 g/dL (2.4-3.5); Glucose 110 mg/dL (83-110); Potassium 4.2 mmol/L (3.5-5.1); Protein, Total 5.5 g/dL (5.8-8.1); Sodium 135 mmol/L (136-145)
[2022-06-27] MEDS ORDERED: Haloperidol Lactate 5 MG/ML VIAL IM SCH (09:15)
[2022-06-27] MEDS: Amlodipine 5 MG TAB PO SCH (10:19)
[2022-06-27] MEDS: Zinc Sulfate 220 MG CAP PO SCH (10:20)
[2022-06-27] MEDS: Ascorbic Acid 500 mg Chewable Tablet PO SCH (10:20)
[2022-06-27] MEDS: Valsartan 80 MG TAB PO SCH (10:20)
[2022-06-27] MEDS: Aspirin 81 mg Enteric Coated Tablet PO SCH (10:20)
[2022-06-27] MEDS: Allopurinol 300 MG TAB PO SCH (10:20)
[2022-06-27] MEDS: Famotidine 20 MG TAB PO SCH ×2 (10:20→21:04)
[2022-06-27] MEDS: NIRMATRELVIR 150 MG/RITONAVIR 100 MG PO SCH ×2 (10:21→21:05)
[2022-06-27] MEDS: Sodium Chloride 0.9% 1,000 ML IV SCH (15:33)
[2022-06-27] MEDS: VANCOMYCIN 2 GRAM/500 ML BAG 2 GM in Premix Bag 1 BAG IVPB SCH (17:36)
[2022-06-28] MEDS: Cefepime 2 GM in Sodium Chloride 0.9% 100 ML IVPB SCH ×2 (04:05→14:07)
[2022-06-28 04:32] LABS: #Eosinphils 0.1 thou/uL (0.0-0.7); #Lymphocytes 0.6 thou/uL (1.20-3.40); #Monocytes 0.5 thou/uL (0.11-0.59); #Neutrophils 2.9 thou/uL (1.40-6.50); %Eosinophils 1.5 % (0.0-10.0); %Lymphocytes 14.3 % (21.0-51.0); %Monocytes 12.5 % (0.0-10.0); %Neutrophils 71.7 % (42.0-75.0); Hemoglobin 12.4 g/dL (14.0-18.0); Mean Corpuscular HGB CONC 33.1 g/dL (32.0-36.0); Mean Corpuscular Volume 93.6 fl (78.0-98.0); Mean Platelet Volume 8.9 fL (7.4-10.4); Platelet Count 134 10x3/uL (130-400)
[2022-06-28 04:43] LABS: ALT (SGPT) 46 U/L (8-55); AST (SGOT) 91 U/L (5-34); Alkaline Phosphatase 54 U/L (40-110); Anion Gap 10 mmol/L (10-20); BUN (Urea Nitrogen) 22 mg/dL (8.4-25.7); Bilirubin, Total 0.6 mg/dL (0.2-1.2); Calc. Creatinine Clearance 110 mL/min (70-130); Calcium 9.4 mg/dL (7.8-10.44); Carbon Dioxide 22 mmol/L (23-31); Chloride 108 mmol/L (98-107); Estimated GFR 89; Globulin 2.5 g/dL (2.4-3.5); Glucose 82 mg/dL (83-110); Protein, Total 5.5 g/dL (5.8-8.1); Sodium 136 mmol/L (136-145)
[2022-06-28] MEDS: Ascorbic Acid 500 mg Chewable Tablet PO SCH (08:32)
[2022-06-28] MEDS: Valsartan 80 MG TAB PO SCH (08:32)
[2022-06-28] MEDS: Zinc Sulfate 220 MG CAP PO SCH (08:32)
[2022-06-28] MEDS: Amlodipine 5 MG TAB PO SCH (08:32)
[2022-06-28] MEDS: Allopurinol 300 MG TAB PO SCH (08:33)
[2022-06-28] MEDS: Famotidine 20 MG TAB PO SCH ×2 (09:00→21:40)
[2022-06-28] MEDS: Sodium Chloride 0.9% 1,000 ML IV SCH ×2 (11:55→22:25)
[2022-06-28] MEDS ORDERED: Aspirin Chewable 81 MG TAB PO SCH (12:15)
[2022-06-28] MEDS: Aspirin 81 mg Enteric Coated Tablet PO SCH (12:26)
[2022-06-28] MEDS: NIRMATRELVIR 150 MG/RITONAVIR 100 MG PO SCH ×2 (14:36→21:41)
[2022-06-28 17:37] LABS: Vancomycin, Trough 12.1 ug/mL
[2022-06-28] MEDS ORDERED: Vancomycin 1 GM in Premix Bag 1 BAG IVPB SCH (20:00)
[2022-06-28] MEDS: Vancomycin 1 GM in Premix Bag 1 BAG IVPB SCH (21:40)
[2022-06-28] MEDS: Melatonin 3 MG TAB PO PRN (21:43)
[2022-06-28] MEDS ORDERED: Morphine 4 MG/ML VIAL SLOW IVP SCH (23:30)
[2022-06-29] MEDS: VANCOMYCIN 2 GRAM/500 ML BAG 2 GM in Premix Bag 1 BAG IVPB SCH (00:49)
[2022-06-29] MEDS: Cefepime 2 GM in Sodium Chloride 0.9% 100 ML IVPB SCH (04:16)
[2022-06-29] MEDS ORDERED: Morphine 2 MG/ML VIAL SLOW IVP PRN (08:59)
[2022-06-29] MEDS: Ascorbic Acid 500 mg Chewable Tablet PO SCH (09:39)
[2022-06-29] MEDS: Vancomycin 1 GM in Premix Bag 1 BAG IVPB SCH (09:39)
[2022-06-29] MEDS: Allopurinol 300 MG TAB PO SCH (09:40)
[2022-06-29] MEDS: Amlodipine 5 MG TAB PO SCH (09:40)
[2022-06-29] MEDS: Famotidine 20 MG TAB PO SCH ×2 (09:40→21:02)
[2022-06-29] MEDS: Aspirin Chewable 81 MG TAB PO SCH (09:40)
[2022-06-29] MEDS: Zinc Sulfate 220 MG CAP PO SCH (09:41)
[2022-06-29] MEDS: Valsartan 80 MG TAB PO SCH (09:41)
[2022-06-29] MEDS: NIRMATRELVIR 150 MG/RITONAVIR 100 MG PO SCH ×2 (09:47→21:03)
[2022-06-29] MEDS ORDERED: Amlodipine 10 MG TAB PO SCH (16:15)
[2022-06-29] MEDS: traMADol HCl 50 MG TAB PO PRN (17:52)
[2022-06-29] MEDS: Cefdinir 300 MG CAP PO SCH (21:02)
[2022-06-29] MEDS: Melatonin 3 MG TAB PO PRN (21:05)
[2022-06-30] MEDS: Sodium Chloride 0.9% 1,000 ML IV SCH ×2 (01:18→21:04)
[2022-06-30] MEDS: traMADol HCl 50 MG TAB PO PRN (06:24)
[2022-06-30] MEDS: Famotidine 20 MG TAB PO SCH ×2 (09:00→21:03)
[2022-06-30] MEDS: Valsartan 80 MG TAB PO SCH (09:49)
[2022-06-30] MEDS: Allopurinol 300 MG TAB PO SCH (09:49)
[2022-06-30] MEDS: Aspirin Chewable 81 MG TAB PO SCH (09:50)
[2022-06-30] MEDS: Ascorbic Acid 500 mg Chewable Tablet PO SCH (09:50)
[2022-06-30] MEDS: Cefdinir 300 MG CAP PO SCH ×2 (09:50→21:03)
[2022-06-30] MEDS: Azithromycin 250 MG TAB PO SCH (09:50)
[2022-06-30] MEDS: Zinc Sulfate 220 MG CAP PO SCH (09:50)
[2022-06-30] MEDS: Amlodipine 10 MG TAB PO SCH (09:51)
[2022-06-30] MEDS: NIRMATRELVIR 150 MG/RITONAVIR 100 MG PO SCH (10:09)
[2022-07-01] MEDS: Ascorbic Acid 500 mg Chewable Tablet PO SCH (09:29)
[2022-07-01] MEDS: Azithromycin 250 MG TAB PO SCH (09:30)
[2022-07-01] MEDS: Cefdinir 300 MG CAP PO SCH ×2 (09:30→21:04)
[2022-07-01] MEDS: Allopurinol 300 MG TAB PO SCH (09:30)
[2022-07-01] MEDS: Amlodipine 10 MG TAB PO SCH (09:30)
[2022-07-01] MEDS: Aspirin Chewable 81 MG TAB PO SCH (09:30)
[2022-07-01] MEDS: Famotidine 20 MG TAB PO SCH ×2 (09:31→21:02)
[2022-07-01] MEDS: Valsartan 80 MG TAB PO SCH (09:31)
[2022-07-01] MEDS: Zinc Sulfate 220 MG CAP PO SCH (09:31)
[2022-07-01] MEDS: Sodium Chloride 0.9% 1,000 ML IV SCH (15:31)
[2022-07-01] MEDS: traMADol HCl 50 MG TAB PO PRN (21:03)
[2022-07-02] MEDS: Allopurinol 300 MG TAB PO SCH (08:31)
[2022-07-02] MEDS: Amlodipine 10 MG TAB PO SCH (08:31)
[2022-07-02] MEDS: Ascorbic Acid 500 mg Chewable Tablet PO SCH (08:31)
[2022-07-02] MEDS: Azithromycin 250 MG TAB PO SCH (08:32)
[2022-07-02] MEDS: Aspirin Chewable 81 MG TAB PO SCH (08:32)
[2022-07-02] MEDS: Cefdinir 300 MG CAP PO SCH ×2 (08:33→20:51)
[2022-07-02] MEDS: Famotidine 20 MG TAB PO SCH ×2 (08:33→20:51)
[2022-07-02] MEDS: Valsartan 80 MG TAB PO SCH (08:33)
[2022-07-02] MEDS: Zinc Sulfate 220 MG CAP PO SCH (08:34)
[2022-07-02] MEDS: hydrALAZINE 25 MG TAB PO SCH ×3 (09:02→20:51)
[2022-07-02] MEDS ORDERED: Dexamethasone 4 MG TAB PO SCH (13:00)
[2022-07-03 07:40] LABS: Anion Gap 13 mmol/L (10-20); BUN (Urea Nitrogen) 16 mg/dL (8.4-25.7); Calc. Creatinine Clearance 131 mL/min (70-130); Calcium 10.3 mg/dL (7.8-10.44); Carbon Dioxide 23 mmol/L (23-31); Chloride 106 mmol/L (98-107); Estimated GFR 94; Glucose 80 mg/dL (83-110); Potassium 3.8 mmol/L (3.5-5.1); Sodium 138 mmol/L (136-145)
[2022-07-03 07:45] LABS: #Eosinphils 0.3 thou/uL (0.0-0.7); #Lymphocytes 0.5 thou/uL (1.20-3.40); #Monocytes 0.8 thou/uL (0.11-0.59); #Neutrophils 5.9 thou/uL (1.40-6.50); %Basophils 0.1 % (0.0-1.0); %Eosinophils 4.2 % (0.0-10.0); %Monocytes 10.3 % (0.0-10.0); %Neutrophils 79.3 % (42.0-75.0); Hemoglobin 11.3 g/dL (14.0-18.0); Mean Corpuscular HGB CONC 31.8 g/dL (32.0-36.0); Mean Corpuscular Hemoglobin 29.7 pg (27.0-31.0); Mean Corpuscular Volume 93.5 fl (78.0-98.0); Mean Platelet Volume 7.5 fL (7.4-10.4); Platelet Count 343 10x3/uL (130-400); RBC Distribution Width 14.1 % (11.5-14.5); Red Blood Cell (RBC) Count 3.81 mill/uL (4.70-6.10); White Blood Cell (WBC) Count 7.5 10x3/uL (4.8-10.8)
[2022-07-03] MEDS: Dexamethasone 4 MG TAB PO SCH (08:10)
[2022-07-03] MEDS: Allopurinol 300 MG TAB PO SCH (08:10)
[2022-07-03] MEDS: Ascorbic Acid 500 mg Chewable Tablet PO SCH (08:10)
[2022-07-03] MEDS: Amlodipine 10 MG TAB PO SCH (08:10)
[2022-07-03] MEDS: Azithromycin 250 MG TAB PO SCH (08:11)
[2022-07-03] MEDS: Famotidine 20 MG TAB PO SCH (08:11)
[2022-07-03] MEDS: Zinc Sulfate 220 MG CAP PO SCH (08:11)
[2022-07-03] MEDS: hydrALAZINE 25 MG TAB PO SCH ×3 (08:11→21:01)
[2022-07-03] MEDS: Cefdinir 300 MG CAP PO SCH (08:11)
[2022-07-03] MEDS: Aspirin Chewable 81 MG TAB PO SCH (08:11)
[2022-07-03] MEDS: Valsartan 80 MG TAB PO SCH (09:39)
[2022-07-03] MEDS ORDERED: Electrolyte Replacement Protocol 1 EACH FS PRN (12:00)
[2022-07-03] MEDS: Amoxicillin/Potassium Clav 875 MG TAB PO SCH (21:00)
[2022-07-03] MEDS: Cholecalciferol 1,000 UNITS (25 MCG) TAB PO SCH (21:00)
[2022-07-03] MEDS: Acetaminophen 325 MG TAB PO SCH (21:00)
[2022-07-03] MEDS: Senokot S 8.6-50 MG TAB PO SCH (21:01)
[2022-07-04 06:42] LABS: #Lymphocytes 0.4 thou/uL (1.20-3.40); #Monocytes 0.5 thou/uL (0.11-0.59); #Neutrophils 6.8 thou/uL (1.40-6.50); %Eosinophils 0.6 % (0.0-10.0); %Lymphocytes 5.5 % (21.0-51.0); %Monocytes 5.9 % (0.0-10.0); %Neutrophils 88.1 % (42.0-75.0); Hemoglobin 11.6 g/dL (14.0-18.0); Mean Corpuscular HGB CONC 32.7 g/dL (32.0-36.0); Mean Corpuscular Hemoglobin 30.3 pg (27.0-31.0); Mean Corpuscular Volume 92.7 fl (78.0-98.0); Mean Platelet Volume 7.3 fL (7.4-10.4); Platelet Count 371 10x3/uL (130-400); RBC Distribution Width 14.1 % (11.5-14.5); Red Blood Cell (RBC) Count 3.84 mill/uL (4.70-6.10); White Blood Cell (WBC) Count 7.7 10x3/uL (4.8-10.8)
[2022-07-04 07:04] LABS: Anion Gap 12 mmol/L (10-20); BUN (Urea Nitrogen) 21 mg/dL (8.4-25.7); CRP (Inflammatory) 6.35 mg/dL (= or < 0.5); Calc. Creatinine Clearance 110 mL/min (70-130); Calcium 10.5 mg/dL (7.8-10.44); Carbon Dioxide 26 mmol/L (23-31); Chloride 104 mmol/L (98-107); Estimated GFR 89; Glucose 133 mg/dL (83-110); Magnesium 1.8 mg/dL (1.6-2.6); Phosphorus 1.9 mg/dL (2.3-4.7); Sodium 138 mmol/L (136-145)
[2022-07-04] MEDS: Cyanocobalamin (Vitamin B-12) 1,000 MCG TAB PO SCH (08:50)
[2022-07-04] MEDS: Valsartan 80 MG TAB PO SCH (08:50)
[2022-07-04] MEDS: Aspirin Chewable 81 MG TAB PO SCH (08:50)
[2022-07-04] MEDS: Folic Acid 1 MG TAB PO SCH (08:50)
[2022-07-04] MEDS: Zinc Sulfate 220 MG CAP PO SCH (08:51)
[2022-07-04] MEDS: Allopurinol 300 MG TAB PO SCH (08:51)
[2022-07-04] MEDS: Ascorbic Acid 500 mg Chewable Tablet PO SCH (08:51)
[2022-07-04] MEDS: Senokot S 8.6-50 MG TAB PO SCH ×2 (08:51→20:18)
[2022-07-04] MEDS: Multivit, Therapeutic 1 TAB PO SCH (08:51)
[2022-07-04] MEDS: Dexamethasone 4 MG TAB PO SCH (08:51)
[2022-07-04] MEDS: Acetaminophen 325 MG TAB PO SCH ×3 (08:52→20:17)
[2022-07-04] MEDS: hydrALAZINE 25 MG TAB PO SCH ×3 (08:52→20:18)
[2022-07-04] MEDS: Amoxicillin/Potassium Clav 875 MG TAB PO SCH ×2 (08:54→20:18)
[2022-07-04] MEDS ORDERED: Amlodipine 5 MG TAB PO SCH (09:00)
[2022-07-04] MEDS ORDERED: Magnesium 2 GM/50 ML(in water) 2 GM in Premix Bag 1 BAG IVPB SCH (09:00)
[2022-07-04] MEDS: PHOS-NAK 1 PKT PACK PO SCH ×2 (10:40→13:30)
[2022-07-04] MEDS: Magnesium Oxide 400 MG TAB PO SCH (20:18)
[2022-07-04] MEDS: Amlodipine 5 MG TAB PO SCH (20:18)
[2022-07-04] MEDS: Cholecalciferol 1,000 UNITS (25 MCG) TAB PO SCH (20:18)
[2022-07-05 08:03] LABS: #Lymphocytes 0.3 thou/uL (1.20-3.40); #Monocytes 0.6 thou/uL (0.11-0.59); #Neutrophils 8.1 thou/uL (1.40-6.50); %Basophils 0.1 % (0.0-1.0); %Eosinophils 0.4 % (0.0-10.0); %Lymphocytes 3.4 % (21.0-51.0); %Monocytes 6.9 % (0.0-10.0); %Neutrophils 89.3 % (42.0-75.0); Mean Corpuscular HGB CONC 32.8 g/dL (32.0-36.0); Mean Corpuscular Hemoglobin 30.4 pg (27.0-31.0); Mean Corpuscular Volume 92.7 fl (78.0-98.0); Mean Platelet Volume 7.2 fL (7.4-10.4); Platelet Count 418 10x3/uL (130-400); RBC Distribution Width 14.1 % (11.5-14.5); Red Blood Cell (RBC) Count 3.96 mill/uL (4.70-6.10); White Blood Cell (WBC) Count 9.1 10x3/uL (4.8-10.8)
[2022-07-05 08:22] LABS: ALT (SGPT) 36 U/L (8-55); AST (SGOT) 28 U/L (5-34); Albumin 3.2 g/dL (3.4-4.8); Alkaline Phosphatase 64 U/L (40-110); Anion Gap 12 mmol/L (10-20); BUN (Urea Nitrogen) 19 mg/dL (8.4-25.7); Bilirubin, Total 0.8 mg/dL (0.2-1.2); CRP (Inflammatory) 2.06 mg/dL (= or < 0.5); Calc. Creatinine Clearance 121 mL/min (70-130); Calcium 10.6 mg/dL (7.8-10.44); Carbon Dioxide 26 mmol/L (23-31); Chloride 105 mmol/L (98-107); Estimated GFR 92; Glucose 114 mg/dL (83-110); Phosphorus 1.9 mg/dL (2.3-4.7); Potassium 3.6 mmol/L (3.5-5.1); Protein, Total 6.2 g/dL (5.8-8.1); Sodium 139 mmol/L (136-145)
[2022-07-05] MEDS: hydrALAZINE 25 MG TAB PO SCH ×3 (09:39→21:09)
[2022-07-05] MEDS: Amlodipine 5 MG TAB PO SCH ×2 (09:40→21:08)
[2022-07-05] MEDS: Amoxicillin/Potassium Clav 875 MG TAB PO SCH ×2 (09:40→21:08)
[2022-07-05] MEDS: Aspirin Chewable 81 MG TAB PO SCH (09:40)
[2022-07-05] MEDS: Multivit, Therapeutic 1 TAB PO SCH (09:40)
[2022-07-05] MEDS: Senokot S 8.6-50 MG TAB PO SCH ×2 (09:40→20:52)
[2022-07-05] MEDS: Ascorbic Acid 500 mg Chewable Tablet PO SCH (09:40)
[2022-07-05] MEDS: Dexamethasone 4 MG TAB PO SCH (09:40)
[2022-07-05] MEDS: Folic Acid 1 MG TAB PO SCH (09:41)
[2022-07-05] MEDS: Acetaminophen 325 MG TAB PO SCH ×3 (09:41→21:08)
[2022-07-05] MEDS: Magnesium Oxide 400 MG TAB PO SCH ×2 (09:41→21:09)
[2022-07-05] MEDS: Zinc Sulfate 220 MG CAP PO SCH (09:41)
[2022-07-05] MEDS: Valsartan 80 MG TAB PO SCH (09:42)
[2022-07-05] MEDS: Cyanocobalamin (Vitamin B-12) 1,000 MCG TAB PO SCH (09:42)
[2022-07-05] MEDS: Allopurinol 300 MG TAB PO SCH (09:42)
[2022-07-05] MEDS: PHOS-NAK 1 PKT PACK PO SCH ×2 (09:45→14:25)
[2022-07-05] MEDS: K-Phos Neutral 250 MG TAB PO SCH (16:53)
[2022-07-05] MEDS: Cholecalciferol 1,000 UNITS (25 MCG) TAB PO SCH (21:08)
[2022-07-06 07:19] LABS: Albumin 3.1 g/dL (3.4-4.8); Anion Gap 14 mmol/L (10-20); BUN (Urea Nitrogen) 20 mg/dL (8.4-25.7); BUN/Creatinine Ratio 25.97; Calc. Creatinine Clearance 114 mL/min (70-130); Calcium 10.5 mg/dL (7.8-10.44); Carbon Dioxide 23 mmol/L (23-31); Chloride 104 mmol/L (98-107); Estimated GFR 90; Glucose 105 mg/dL (83-110); Phosphorus 2.4 mg/dL (2.3-4.7); Potassium 3.8 mmol/L (3.5-5.1); Sodium 137 mmol/L (136-145)
[2022-07-06] MEDS: Valsartan 80 MG TAB PO SCH (08:11)
[2022-07-06] MEDS: Dexamethasone 4 MG TAB PO SCH (08:11)
[2022-07-06] MEDS: Amlodipine 5 MG TAB PO SCH ×2 (08:11→20:57)
[2022-07-06] MEDS: Ascorbic Acid 500 mg Chewable Tablet PO SCH (08:12)
[2022-07-06] MEDS: hydrALAZINE 25 MG TAB PO SCH ×3 (08:12→20:58)
[2022-07-06] MEDS: Allopurinol 300 MG TAB PO SCH (08:12)
[2022-07-06] MEDS: Aspirin Chewable 81 MG TAB PO SCH (08:12)
[2022-07-06] MEDS: K-Phos Neutral 250 MG TAB PO SCH ×3 (08:12→16:51)
[2022-07-06] MEDS: Senokot S 8.6-50 MG TAB PO SCH ×2 (08:13→20:58)
[2022-07-06] MEDS: Acetaminophen 325 MG TAB PO SCH ×3 (08:13→20:56)
[2022-07-06] MEDS: Cyanocobalamin (Vitamin B-12) 1,000 MCG TAB PO SCH (08:13)
[2022-07-06] MEDS: Multivit, Therapeutic 1 TAB PO SCH (08:13)
[2022-07-06] MEDS: Amoxicillin/Potassium Clav 875 MG TAB PO SCH ×2 (08:13→20:57)
[2022-07-06] MEDS: Zinc Sulfate 220 MG CAP PO SCH (08:13)
[2022-07-06] MEDS: Folic Acid 1 MG TAB PO SCH (08:14)
[2022-07-06] MEDS: Magnesium Oxide 400 MG TAB PO SCH ×2 (10:04→20:57)
[2022-07-06] MEDS ORDERED: Cyclobenzaprine 10 MG TAB PO SCH (11:00)
[2022-07-06] MEDS: Cholecalciferol 1,000 UNITS (25 MCG) TAB PO SCH (20:58)
[2022-07-06] MEDS: Cyclobenzaprine 10 MG TAB PO PRN (20:58)
[2022-07-07] MEDS: Melatonin 3 MG TAB PO PRN ×2 (00:35→21:07)
[2022-07-07] MEDS: Aspirin Chewable 81 MG TAB PO SCH (08:18)
[2022-07-07] MEDS: Valsartan 80 MG TAB PO SCH (08:18)
[2022-07-07] MEDS: Amoxicillin/Potassium Clav 875 MG TAB PO SCH ×2 (08:18→21:06)
[2022-07-07] MEDS: Senokot S 8.6-50 MG TAB PO SCH ×2 (08:18→21:08)
[2022-07-07] MEDS: Allopurinol 300 MG TAB PO SCH (08:18)
[2022-07-07] MEDS: hydrALAZINE 25 MG TAB PO SCH ×3 (08:19→21:07)
[2022-07-07] MEDS: Dexamethasone 4 MG TAB PO SCH (08:19)
[2022-07-07] MEDS: Cyanocobalamin (Vitamin B-12) 1,000 MCG TAB PO SCH (08:19)
[2022-07-07] MEDS: Acetaminophen 325 MG TAB PO SCH ×3 (08:20→21:08)
[2022-07-07] MEDS: Zinc Sulfate 220 MG CAP PO SCH (08:20)
[2022-07-07] MEDS: Ascorbic Acid 500 mg Chewable Tablet PO SCH (08:20)
[2022-07-07] MEDS: Amlodipine 5 MG TAB PO SCH ×2 (08:20→21:08)
[2022-07-07] MEDS: Folic Acid 1 MG TAB PO SCH (08:20)
[2022-07-07] MEDS: Multivit, Therapeutic 1 TAB PO SCH (08:20)
[2022-07-07] MEDS: Magnesium Oxide 400 MG TAB PO SCH ×2 (08:21→21:08)
[2022-07-07] MEDS: Cyclobenzaprine 10 MG TAB PO PRN (21:07)
[2022-07-07] MEDS: Cholecalciferol 1,000 UNITS (25 MCG) TAB PO SCH (21:08)
[2022-07-08] MEDS: hydrALAZINE 25 MG TAB PO PRN (05:13)
[2022-07-08] MEDS: Acetaminophen 325 MG TAB PO PRN (05:14)
[2022-07-08 07:46] LABS: Anion Gap 8 mmol/L (10-20); BUN (Urea Nitrogen) 21 mg/dL (8.4-25.7); Calc. Creatinine Clearance 115 mL/min (70-130); Calcium 9.6 mg/dL (7.8-10.44); Carbon Dioxide 27 mmol/L (23-31); Chloride 105 mmol/L (98-107); Estimated GFR 90; Glucose 106 mg/dL (83-110); Potassium 3.7 mmol/L (3.5-5.1); Sodium 136 mmol/L (136-145)
[2022-07-08 08:18] LABS: #Eosinphils 0.1 thou/uL (0.0-0.7); #Lymphocytes 0.7 thou/uL (1.20-3.40); #Monocytes 0.9 thou/uL (0.11-0.59); #Neutrophils 5.5 thou/uL (1.40-6.50); %Basophils 0.2 % (0.0-1.0); %Eosinophils 1.2 % (0.0-10.0); %Lymphocytes 9.4 % (21.0-51.0); %Neutrophils 77.3 % (42.0-75.0); Hemoglobin 10.9 g/dL (14.0-18.0); Mean Corpuscular HGB CONC 32.7 g/dL (32.0-36.0); Mean Corpuscular Hemoglobin 30.5 pg (27.0-31.0); Mean Corpuscular Volume 93.3 fl (78.0-98.0); Mean Platelet Volume 7.6 fL (7.4-10.4); Platelet Count 334 10x3/uL (130-400); RBC Distribution Width 14.3 % (11.5-14.5); Red Blood Cell (RBC) Count 3.58 mill/uL (4.70-6.10); White Blood Cell (WBC) Count 7.1 10x3/uL (4.8-10.8)
[2022-07-08] MEDS: Acetaminophen 325 MG TAB PO SCH ×3 (08:26→20:58)
[2022-07-08] MEDS: Valsartan 80 MG TAB PO SCH (08:26)
[2022-07-08] MEDS: Multivit, Therapeutic 1 TAB PO SCH (08:27)
[2022-07-08] MEDS: Cyanocobalamin (Vitamin B-12) 1,000 MCG TAB PO SCH (08:27)
[2022-07-08] MEDS: Amoxicillin/Potassium Clav 875 MG TAB PO SCH ×2 (08:27→20:56)
[2022-07-08] MEDS: Folic Acid 1 MG TAB PO SCH (08:27)
[2022-07-08] MEDS: Aspirin Chewable 81 MG TAB PO SCH (08:27)
[2022-07-08] MEDS: Zinc Sulfate 220 MG CAP PO SCH (08:27)
[2022-07-08] MEDS: Allopurinol 300 MG TAB PO SCH (08:27)
[2022-07-08] MEDS: Ascorbic Acid 500 mg Chewable Tablet PO SCH (08:27)
[2022-07-08] MEDS: Senokot S 8.6-50 MG TAB PO SCH ×2 (08:27→20:56)
[2022-07-08] MEDS: Amlodipine 5 MG TAB PO SCH ×2 (08:28→20:57)
[2022-07-08] MEDS: Dexamethasone 4 MG TAB PO SCH (08:28)
[2022-07-08] MEDS: hydrALAZINE 25 MG TAB PO SCH ×3 (08:28→20:57)
[2022-07-08] MEDS: Magnesium Oxide 400 MG TAB PO SCH ×2 (08:28→20:58)
[2022-07-08] MEDS: Cyclobenzaprine 10 MG TAB PO PRN (20:56)
[2022-07-08] MEDS: Cholecalciferol 1,000 UNITS (25 MCG) TAB PO SCH (20:57)
[2022-07-08] MEDS: Melatonin 3 MG TAB PO PRN (20:57)
[2022-07-09] MEDS: Cyclobenzaprine 10 MG TAB PO PRN ×2 (05:07→20:30)
[2022-07-09] MEDS: Acetaminophen 325 MG TAB PO PRN (05:08)
[2022-07-09] MEDS: hydrALAZINE 25 MG TAB PO PRN (05:08)
[2022-07-09 06:27] LABS: #Eosinphils 0.1 thou/uL (0.0-0.7); #Lymphocytes 0.6 thou/uL (1.20-3.40); #Monocytes 0.8 thou/uL (0.11-0.59); #Neutrophils 6.3 thou/uL (1.40-6.50); %Monocytes 10.6 % (0.0-10.0); %Neutrophils 80.4 % (42.0-75.0); Mean Corpuscular HGB CONC 32.7 g/dL (32.0-36.0); Mean Corpuscular Hemoglobin 30.6 pg (27.0-31.0); Mean Corpuscular Volume 93.7 fl (78.0-98.0); Mean Platelet Volume 7.5 fL (7.4-10.4); Platelet Count 285 10x3/uL (130-400); RBC Distribution Width 14.6 % (11.5-14.5); Red Blood Cell (RBC) Count 3.58 mill/uL (4.70-6.10); White Blood Cell (WBC) Count 7.8 10x3/uL (4.8-10.8)
[2022-07-09 06:45] LABS: Anion Gap 10 mmol/L (10-20); BUN (Urea Nitrogen) 21 mg/dL (8.4-25.7); Calc. Creatinine Clearance 120 mL/min (70-130); Carbon Dioxide 26 mmol/L (23-31); Chloride 102 mmol/L (98-107); Estimated GFR 91; Glucose 119 mg/dL (83-110); Potassium 3.9 mmol/L (3.5-5.1); Sodium 134 mmol/L (136-145)
[2022-07-09] MEDS: Allopurinol 300 MG TAB PO SCH (08:52)
[2022-07-09] MEDS: Dexamethasone 4 MG TAB PO SCH (08:53)
[2022-07-09] MEDS: Valsartan 80 MG TAB PO SCH (08:53)
[2022-07-09] MEDS: Ascorbic Acid 500 mg Chewable Tablet PO SCH (08:54)
[2022-07-09] MEDS: Acetaminophen 325 MG TAB PO SCH ×3 (08:54→20:32)
[2022-07-09] MEDS: hydrALAZINE 25 MG TAB PO SCH ×3 (08:55→20:31)
[2022-07-09] MEDS: Cyanocobalamin (Vitamin B-12) 1,000 MCG TAB PO SCH (08:56)
[2022-07-09] MEDS: Amoxicillin/Potassium Clav 875 MG TAB PO SCH ×2 (08:56→20:30)
[2022-07-09] MEDS: Amlodipine 5 MG TAB PO SCH ×2 (08:56→20:32)
[2022-07-09] MEDS: Aspirin Chewable 81 MG TAB PO SCH (08:56)
[2022-07-09] MEDS: Senokot S 8.6-50 MG TAB PO SCH ×2 (08:56→20:30)
[2022-07-09] MEDS: Folic Acid 1 MG TAB PO SCH (08:56)
[2022-07-09] MEDS: Zinc Sulfate 220 MG CAP PO SCH (08:56)
[2022-07-09] MEDS: Multivit, Therapeutic 1 TAB PO SCH (08:57)
[2022-07-09] MEDS: Magnesium Oxide 400 MG TAB PO SCH ×2 (08:57→20:32)
[2022-07-09] MEDS: Cholecalciferol 1,000 UNITS (25 MCG) TAB PO SCH (20:32)
[2022-07-09] MEDS: Melatonin 3 MG TAB PO PRN (20:35)
[2022-07-10] MEDS: Cyclobenzaprine 10 MG TAB PO PRN (05:03)
[2022-07-10] MEDS: hydrALAZINE 25 MG TAB PO PRN (05:03)
[2022-07-10] MEDS: Acetaminophen 325 MG TAB PO PRN (05:03)
[2022-07-10 06:15] LABS: #Eosinphils 0.1 thou/uL (0.0-0.7); #Lymphocytes 0.7 thou/uL (1.20-3.40); #Monocytes 0.8 thou/uL (0.11-0.59); #Neutrophils 7.1 thou/uL (1.40-6.50); %Eosinophils 1.1 % (0.0-10.0); %Lymphocytes 7.6 % (21.0-51.0); %Monocytes 8.8 % (0.0-10.0); %Neutrophils 82.5 % (42.0-75.0); Hemoglobin 11.2 g/dL (14.0-18.0); Mean Corpuscular HGB CONC 32.6 g/dL (32.0-36.0); Mean Corpuscular Hemoglobin 30.6 pg (27.0-31.0); Mean Corpuscular Volume 93.9 fl (78.0-98.0); Mean Platelet Volume 7.9 fL (7.4-10.4); Platelet Count 270 10x3/uL (130-400); RBC Distribution Width 15.1 % (11.5-14.5); Red Blood Cell (RBC) Count 3.65 mill/uL (4.70-6.10); White Blood Cell (WBC) Count 8.6 10x3/uL (4.8-10.8)
[2022-07-10 06:40] LABS: Anion Gap 11 mmol/L (10-20); BUN (Urea Nitrogen) 23 mg/dL (8.4-25.7); Calc. Creatinine Clearance 111 mL/min (70-130); Calcium 9.9 mg/dL (7.8-10.44); Carbon Dioxide 25 mmol/L (23-31); Chloride 101 mmol/L (98-107); Estimated GFR 89; Glucose 119 mg/dL (83-110); Potassium 4.2 mmol/L (3.5-5.1); Sodium 133 mmol/L (136-145)
[2022-07-10] MEDS: Valsartan 80 MG TAB PO SCH (08:13)
[2022-07-10] MEDS: Senokot S 8.6-50 MG TAB PO SCH ×2 (08:14→21:06)
[2022-07-10] MEDS: Magnesium Oxide 400 MG TAB PO SCH ×2 (08:15→21:04)
[2022-07-10] MEDS: hydrALAZINE 25 MG TAB PO SCH ×3 (08:15→21:02)
[2022-07-10] MEDS: Multivit, Therapeutic 1 TAB PO SCH (08:15)
[2022-07-10] MEDS: Ascorbic Acid 500 mg Chewable Tablet PO SCH (08:15)
[2022-07-10] MEDS: Allopurinol 300 MG TAB PO SCH (08:16)
[2022-07-10] MEDS: Cyanocobalamin (Vitamin B-12) 1,000 MCG TAB PO SCH (08:16)
[2022-07-10] MEDS: Zinc Sulfate 220 MG CAP PO SCH (08:16)
[2022-07-10] MEDS: Folic Acid 1 MG TAB PO SCH (08:16)
[2022-07-10] MEDS: Amoxicillin/Potassium Clav 875 MG TAB PO SCH ×2 (08:16→21:06)
[2022-07-10] MEDS: Acetaminophen 325 MG TAB PO SCH ×3 (08:16→21:04)
[2022-07-10] MEDS: Dexamethasone 4 MG TAB PO SCH (08:17)
[2022-07-10] MEDS: Amlodipine 5 MG TAB PO SCH ×2 (08:17→21:07)
[2022-07-10] MEDS: Aspirin Chewable 81 MG TAB PO SCH (08:17)
[2022-07-10] MEDS: Cholecalciferol 1,000 UNITS (25 MCG) TAB PO SCH (21:04)
[2022-07-11 07:13] LABS: #Eosinphils 0.2 thou/uL (0.0-0.7); #Lymphocytes 0.5 thou/uL (1.20-3.40); #Monocytes 0.8 thou/uL (0.11-0.59); %Basophils 0.1 % (0.0-1.0); %Eosinophils 2.3 % (0.0-10.0); %Lymphocytes 6.8 % (21.0-51.0); %Monocytes 11.1 % (0.0-10.0); %Neutrophils 79.7 % (42.0-75.0); Hemoglobin 11.3 g/dL (14.0-18.0); Mean Corpuscular HGB CONC 32.7 g/dL (32.0-36.0); Mean Corpuscular Hemoglobin 30.9 pg (27.0-31.0); Mean Corpuscular Volume 94.4 fl (78.0-98.0); Mean Platelet Volume 8.2 fL (7.4-10.4); Platelet Count 260 10x3/uL (130-400); RBC Distribution Width 15.3 % (11.5-14.5); Red Blood Cell (RBC) Count 3.66 mill/uL (4.70-6.10); White Blood Cell (WBC) Count 7.5 10x3/uL (4.8-10.8)
[2022-07-11 07:35] LABS: Anion Gap 10 mmol/L (10-20); BUN (Urea Nitrogen) 22 mg/dL (8.4-25.7); Calc. Creatinine Clearance 111 mL/min (70-130); Calcium 9.8 mg/dL (7.8-10.44); Carbon Dioxide 27 mmol/L (23-31); Chloride 101 mmol/L (98-107); Estimated GFR 89; Glucose 134 mg/dL (83-110); Potassium 3.9 mmol/L (3.5-5.1); Sodium 134 mmol/L (136-145)
[2022-07-11] MEDS: Polyethylene Glycol 3350 17 GM Packet PO PRN (10:05)
[2022-07-11] MEDS: Senokot S 8.6-50 MG TAB PO SCH ×2 (10:07→19:55)
[2022-07-11] MEDS: Valsartan 80 MG TAB PO SCH (10:07)
[2022-07-11] MEDS: Aspirin Chewable 81 MG TAB PO SCH (10:08)
[2022-07-11] MEDS: Zinc Sulfate 220 MG CAP PO SCH (10:08)
[2022-07-11] MEDS: Ascorbic Acid 500 mg Chewable Tablet PO SCH (10:08)
[2022-07-11] MEDS: Dexamethasone 4 MG TAB PO SCH (10:09)
[2022-07-11] MEDS: Magnesium Oxide 400 MG TAB PO SCH ×2 (10:09→19:56)
[2022-07-11] MEDS: Allopurinol 300 MG TAB PO SCH (10:09)
[2022-07-11] MEDS: Amlodipine 5 MG TAB PO SCH ×2 (10:09→19:55)
[2022-07-11] MEDS: Cyanocobalamin (Vitamin B-12) 1,000 MCG TAB PO SCH (10:09)
[2022-07-11] MEDS: hydrALAZINE 25 MG TAB PO SCH ×3 (10:10→19:55)
[2022-07-11] MEDS: Folic Acid 1 MG TAB PO SCH (10:10)
[2022-07-11] MEDS: Acetaminophen 325 MG TAB PO SCH ×3 (10:10→20:02)
[2022-07-11] MEDS: Multivit, Therapeutic 1 TAB PO SCH (10:10)
[2022-07-11] MEDS ORDERED: Bisacodyl 5 MG TAB PO SCH (19:15)
[2022-07-11] MEDS: Melatonin 3 MG TAB PO PRN (19:56)
[2022-07-11] MEDS: Cholecalciferol 1,000 UNITS (25 MCG) TAB PO SCH (19:56)
[2022-07-12] MEDS: Dexamethasone 4 MG TAB PO SCH (08:42)
[2022-07-12] MEDS: Acetaminophen 325 MG TAB PO SCH ×3 (08:42→21:55)
[2022-07-12] MEDS: Ascorbic Acid 500 mg Chewable Tablet PO SCH (08:42)
[2022-07-12] MEDS: Cyanocobalamin (Vitamin B-12) 1,000 MCG TAB PO SCH (08:43)
[2022-07-12] MEDS: Aspirin Chewable 81 MG TAB PO SCH (08:43)
[2022-07-12] MEDS: Amlodipine 5 MG TAB PO SCH ×2 (08:43→21:55)
[2022-07-12] MEDS: hydrALAZINE 25 MG TAB PO SCH ×3 (08:43→21:55)
[2022-07-12] MEDS: Magnesium Oxide 400 MG TAB PO SCH ×2 (08:43→21:55)
[2022-07-12] MEDS: Multivit, Therapeutic 1 TAB PO SCH (08:43)
[2022-07-12] MEDS: Folic Acid 1 MG TAB PO SCH (08:43)
[2022-07-12] MEDS: Allopurinol 300 MG TAB PO SCH (08:43)
[2022-07-12] MEDS: Polyethylene Glycol 3350 17 GM Packet PO PRN (08:44)
[2022-07-12] MEDS: Zinc Sulfate 220 MG CAP PO SCH (08:44)
[2022-07-12] MEDS: Senokot S 8.6-50 MG TAB PO SCH ×2 (08:44→21:55)
[2022-07-12] MEDS: Valsartan 80 MG TAB PO SCH (08:44)
[2022-07-12] MEDS: Cholecalciferol 1,000 UNITS (25 MCG) TAB PO SCH (21:55)
[2022-07-12] MEDS: Cyclobenzaprine 10 MG TAB PO PRN (23:26)
[2022-07-12] MEDS: Melatonin 3 MG TAB PO PRN (23:26)
[2022-07-13 07:53] VITALS: TEMP 97.8
[2022-07-13] MEDS: Ascorbic Acid 500 mg Chewable Tablet PO SCH (08:28)
[2022-07-13] MEDS: Polyethylene Glycol 3350 17 GM Packet PO PRN (08:28)
[2022-07-13] MEDS: Amlodipine 5 MG TAB PO SCH (08:28)
[2022-07-13] MEDS: Senokot S 8.6-50 MG TAB PO SCH (08:28)
[2022-07-13] MEDS: Valsartan 80 MG TAB PO SCH (08:29)
[2022-07-13] MEDS: hydrALAZINE 25 MG TAB PO SCH (08:29)
[2022-07-13] MEDS: Folic Acid 1 MG TAB PO SCH (08:29)
[2022-07-13] MEDS: Zinc Sulfate 220 MG CAP PO SCH (08:29)
[2022-07-13] MEDS: Cyanocobalamin (Vitamin B-12) 1,000 MCG TAB PO SCH (08:29)
[2022-07-13] MEDS: Acetaminophen 325 MG TAB PO SCH (08:29)
[2022-07-13] MEDS: Multivit, Therapeutic 1 TAB PO SCH (08:30)
[2022-07-13] MEDS: Allopurinol 300 MG TAB PO SCH (08:30)
[2022-07-13] MEDS: Magnesium Oxide 400 MG TAB PO SCH (08:30)
[2022-07-13] MEDS: Aspirin Chewable 81 MG TAB PO SCH (08:30)
[2022-07-13 13:25] VITALS: BP 132/69
== END 2022-07-13 15:02 | DRG 871 ==
LOC: ERS 14:34 → 2NO 16:50 → T4-B 07-02 15:38
PROVIDERS: ADMIT Family Medicine; ATTEND Internal Medicine
PROC: 3E03329 Introduction of Other Anti-infective into Peripheral Vein, Percutaneous Approach (ICD-10-PCS; principal; 2022-06-25)
PROC: 8E0ZXY6 Isolation (ICD-10-PCS; 2022-06-25)
DX: A41.89 Other specified sepsis (principal); G93.41 Metabolic encephalopathy; J12.82 Pneumonia due to coronavirus disease 2019; U07.1 COVID-19; J96.01 Acute respiratory failure with hypoxia; J69.0 Pneumonitis due to inhalation of food and vomit; I24.8 Other forms of acute ischemic heart disease; E87.1 Hypo-osmolality and hyponatremia; I10 Essential (primary) hypertension; F17.210 Nicotine dependence, cigarettes, uncomplicated; N40.0 Benign prostatic hyperplasia without lower urinary tract symptoms; M10.9 Gout, unspecified; E66.9 Obesity, unspecified; E78.5 Hyperlipidemia, unspecified; Z96.643 Presence of artificial hip joint, bilateral; Z96.651 Presence of right artificial knee joint; E83.42 Hypomagnesemia; E83.39 Other disorders of phosphorus metabolism; E88.09 Other disorders of plasma-protein metabolism, not elsewhere classified; Z90.49 Acquired absence of other specified parts of digestive tract; Z79.899 Other long term (current) drug therapy; Z68.30 Body mass index [BMI] 30.0-30.9, adult; Z95.1 Presence of aortocoronary bypass graft
CPT/HCPCS: 36415; 36416; 51701; 70450; 71045; 74230; 76705; 80048; 80053; 80069; 80143; 80179; 80202; 80306; 80307; 81003; 81015; 82553; 82805; 83605; 83690; 83735; 83880; 84100; 84145; 84484; 85025; 85610; 85730; 86140; 87040; 87086; 93005; 93306; 94760; 96365; 96366; 96367; 96375; 97139; J0692; J1100; J1650; J2270; J3370; J3370-JW; J3490; J7050; J8540

== ENCOUNTER 2022-08-10 13:20 | Inpatient (IN) | payer MEDICARE ==
[~2022-08-10 13:20] MED LIST: Iopamidol-370 76% 500 ML MDV (1 ML CHARGE) ONE
[2022-08-10 13:57] LABS: #Eosinphils 0.2 thou/uL (0.0-0.7); #Lymphocytes 0.7 thou/uL (1.20-3.40); #Monocytes 0.8 thou/uL (0.11-0.59); #Neutrophils 5.7 thou/uL (1.40-6.50); %Basophils 0.1 % (0.0-1.0); %Eosinophils 3.1 % (0.0-10.0); %Lymphocytes 9.1 % (21.0-51.0); %Monocytes 10.5 % (0.0-10.0); %Neutrophils 77.2 % (42.0-75.0); Hemoglobin 11.2 g/dL (14.0-18.0); Mean Corpuscular HGB CONC 33.1 g/dL (32.0-36.0); Mean Corpuscular Hemoglobin 31.5 pg (27.0-31.0); Mean Corpuscular Volume 95.1 fl (78.0-98.0); Mean Platelet Volume 8.4 fL (7.4-10.4); Platelet Count 257 10x3/uL (130-400); RBC Distribution Width 15.8 % (11.5-14.5); Red Blood Cell (RBC) Count 3.58 mill/uL (4.70-6.10); White Blood Cell (WBC) Count 7.3 10x3/uL (4.8-10.8)
[2022-08-10 14:11] LABS: ALT (SGPT) 10 U/L (8-55); AST (SGOT) 12 U/L (5-34); Albumin 3.5 g/dL (3.4-4.8); Alkaline Phosphatase 81 U/L (40-110); Anion Gap 10 mmol/L (10-20); BUN (Urea Nitrogen) 17 mg/dL (8.4-25.7); Bilirubin, Total 0.4 mg/dL (0.2-1.2); Calc. Creatinine Clearance 0 mL/min (70-130); Calcium 10.7 mg/dL (7.8-10.44); Carbon Dioxide 27 mmol/L (23-31); Chloride 105 mmol/L (98-107); Estimated GFR 82; Globulin 3.1 g/dL (2.4-3.5); Glucose 113 mg/dL (83-110); Protein, Total 6.6 g/dL (5.8-8.1); Sodium 138 mmol/L (136-145)
[2022-08-10] MEDS ORDERED: Furosemide 40 MG/4 ML VIAL ONE (14:14)
[2022-08-10] MEDS ORDERED: Cefepime 2 GM VIAL ONE (17:58)
[2022-08-10] MEDS ORDERED: Ondansetron PF 4 MG/2 ML Vial IVP PRN (18:28)
[2022-08-10] MEDS ORDERED: Ondansetron ODT 4 MG TAB PO PRN (18:28)
[2022-08-10] MEDS ORDERED: Albuterol 200 PUFF (6.7GM INHALER) INH PRN (18:28)
[2022-08-10 19:03] LABS: Magnesium 1.8 mg/dL (1.6-2.6)
[2022-08-10 21:35] VITALS: BMI 32.1
[2022-08-11 00:22] LABS: Bacteria/HPF None Seen HPF (None Seen); Bilirubin Negative (Negative); Blood, Urine Negative (Negative); CAUTI Indications for Culture Alt mental st,lethar; Clarity Clear (Clear); Glucose, Urine (Dipstick) Normal (Negative); Leukocyte Negative Leu/uL (Negative); Nitrite Negative (Negative); Protein, Urine (Dipstick) Negative (Neg-Trace); RBC/HPF 0-3 HPF (0-3); Specific Gravity, Urine 1.027 (1.002-1.036); Squamous Epithelial 0-3 HPF (0-3); Urobilinogen Normal mg/dL (Less than 2); WBC/HPF None Seen HPF (0-3)
[2022-08-11 00:25] LABS: Ketone, Urine Negative (Negative); Legionella Urinary Ag Negative (Negative); Strep pneumo Urine Ag NEGATIVE (NEGATIVE)
[2022-08-11 00:26] LABS: Urine Culture Reflex No No
[2022-08-11] MEDS: Furosemide 20 MG/2 ML VIAL SLOW IVP SCH ×2 (05:06→13:48)
[2022-08-11] MEDS ORDERED: Cefepime 1 GM in Sodium Chloride 0.9% 100 ML IVPB SCH (06:00)
[2022-08-11 07:16] LABS: #Eosinphils 0.2 thou/uL (0.0-0.7); #Lymphocytes 0.6 thou/uL (1.20-3.40); #Monocytes 0.8 thou/uL (0.11-0.59); #Neutrophils 5.1 thou/uL (1.40-6.50); %Eosinophils 2.3 % (0.0-10.0); %Lymphocytes 8.9 % (21.0-51.0); %Monocytes 11.6 % (0.0-10.0); %Neutrophils 77.2 % (42.0-75.0); Hemoglobin 10.8 g/dL (14.0-18.0); Mean Corpuscular HGB CONC 32.2 g/dL (32.0-36.0); Mean Corpuscular Hemoglobin 30.2 pg (27.0-31.0); Mean Corpuscular Volume 93.8 fl (78.0-98.0); Mean Platelet Volume 8.8 fL (7.4-10.4); Platelet Count 231 10x3/uL (130-400); RBC Distribution Width 15.9 % (11.5-14.5); Red Blood Cell (RBC) Count 3.56 mill/uL (4.70-6.10); White Blood Cell (WBC) Count 6.6 10x3/uL (4.8-10.8)
[2022-08-11 07:28] LABS: Anion Gap 12 mmol/L (10-20); BUN (Urea Nitrogen) 13 mg/dL (8.4-25.7); Calc. Creatinine Clearance 119 mL/min (70-130); Calcium 10.3 mg/dL (7.8-10.44); Carbon Dioxide 24 mmol/L (23-31); Chloride 106 mmol/L (98-107); Estimated GFR 90; Glucose 93 mg/dL (83-110); Potassium 3.7 mmol/L (3.5-5.1); Sodium 138 mmol/L (136-145)
[2022-08-11] MEDS ORDERED: VANCOMYCIN 1.75 GM/500 ML BAG 1.75 GM in Premix Bag 1 BAG IVPB SCH (10:00)
[2022-08-11] MEDS ORDERED: hydrALAZINE 20 MG/ML VIAL SLOW IVP SCH (12:45)
[2022-08-11] MEDS ORDERED: Colchicine 0.6 MG TAB PO SCH (13:30)
[2022-08-11] MEDS: hydrALAZINE 25 MG TAB PO SCH ×2 (16:41→20:06)
[2022-08-11] MEDS: Cefepime 2 GM in Sodium Chloride 0.9% 100 ML IVPB SCH (18:18)
[2022-08-11] MEDS: Senokot S 8.6-50 MG TAB PO PRN (20:06)
[2022-08-11] MEDS ORDERED: Colchicine 0.3 MG TAB PO SCH (21:00)
[2022-08-11] MEDS: Acetaminophen 325 MG TAB PO PRN (21:13)
[2022-08-12] MEDS: Cefepime 2 GM in Sodium Chloride 0.9% 100 ML IVPB SCH ×2 (05:10→17:54)
[2022-08-12] MEDS: Furosemide 20 MG/2 ML VIAL SLOW IVP SCH ×2 (05:11→15:08)
[2022-08-12 07:25] LABS: #Eosinphils 0.1 thou/uL (0.0-0.7); #Lymphocytes 0.8 thou/uL (1.20-3.40); #Monocytes 0.9 thou/uL (0.11-0.59); #Neutrophils 5.9 thou/uL (1.40-6.50); %Eosinophils 1.9 % (0.0-10.0); %Lymphocytes 9.8 % (21.0-51.0); %Monocytes 11.8 % (0.0-10.0); %Neutrophils 76.5 % (42.0-75.0); Hemoglobin 10.5 g/dL (14.0-18.0); Mean Corpuscular HGB CONC 31.2 g/dL (32.0-36.0); Mean Corpuscular Hemoglobin 29.2 pg (27.0-31.0); Mean Corpuscular Volume 93.6 fl (78.0-98.0); Mean Platelet Volume 8.4 fL (7.4-10.4); Platelet Count 235 10x3/uL (130-400); RBC Distribution Width 15.8 % (11.5-14.5); White Blood Cell (WBC) Count 7.7 10x3/uL (4.8-10.8)
[2022-08-12 07:48] LABS: Anion Gap 11 mmol/L (10-20); BUN (Urea Nitrogen) 16 mg/dL (8.4-25.7); Calc. Creatinine Clearance 113 mL/min (70-130); Calcium 10.2 mg/dL (7.8-10.44); Carbon Dioxide 24 mmol/L (23-31); Chloride 104 mmol/L (98-107); Estimated GFR 88; Glucose 102 mg/dL (83-110); Potassium 3.6 mmol/L (3.5-5.1); Sodium 135 mmol/L (136-145)
[2022-08-12] MEDS: hydrALAZINE 25 MG TAB PO SCH ×3 (10:09→20:20)
[2022-08-12] MEDS: Colchicine 0.3 MG TAB PO SCH ×2 (10:10→20:20)
[2022-08-12] MEDS: Acetaminophen 325 MG TAB PO PRN (20:21)
[2022-08-12] MEDS: Senokot S 8.6-50 MG TAB PO PRN (20:21)
[2022-08-13] MEDS: Furosemide 20 MG/2 ML VIAL SLOW IVP SCH (05:02)
[2022-08-13] MEDS: Cefepime 2 GM in Sodium Chloride 0.9% 100 ML IVPB SCH (05:02)
[2022-08-13 08:27] LABS: #Eosinphils 0.2 thou/uL (0.0-0.7); #Lymphocytes 0.6 thou/uL (1.20-3.40); #Monocytes 0.7 thou/uL (0.11-0.59); #Neutrophils 4.8 thou/uL (1.40-6.50); %Basophils 0.1 % (0.0-1.0); %Eosinophils 2.5 % (0.0-10.0); %Lymphocytes 10.1 % (21.0-51.0); %Monocytes 11.4 % (0.0-10.0); %Neutrophils 75.9 % (42.0-75.0); Hemoglobin 10.4 g/dL (14.0-18.0); Mean Corpuscular HGB CONC 31.5 g/dL (32.0-36.0); Mean Corpuscular Hemoglobin 29.6 pg (27.0-31.0); Mean Corpuscular Volume 94.1 fl (78.0-98.0); Mean Platelet Volume 8.6 fL (7.4-10.4); Platelet Count 235 10x3/uL (130-400); RBC Distribution Width 15.8 % (11.5-14.5); Red Blood Cell (RBC) Count 3.51 mill/uL (4.70-6.10); White Blood Cell (WBC) Count 6.4 10x3/uL (4.8-10.8)
[2022-08-13] MEDS: hydrALAZINE 25 MG TAB PO SCH (08:34)
[2022-08-13] MEDS: Colchicine 0.3 MG TAB PO SCH (08:34)
[2022-08-13 08:51] LABS: Anion Gap 11 mmol/L (10-20); BUN (Urea Nitrogen) 21 mg/dL (8.4-25.7); Calc. Creatinine Clearance 119 mL/min (70-130); Calcium 10.1 mg/dL (7.8-10.44); Carbon Dioxide 24 mmol/L (23-31); Chloride 105 mmol/L (98-107); Estimated GFR 90; Glucose 94 mg/dL (83-110); Potassium 3.8 mmol/L (3.5-5.1); Sodium 136 mmol/L (136-145)
[2022-08-13 15:39] VITALS: TEMP 98.6
[2022-08-13 15:42] VITALS: BP 116/61
== END 2022-08-13 16:14 | disposition home health service (06) | DRG 553 ==
LOC: ERS 13:20 → T4-B 17:54 → OBSVTOIN 08-13 11:31
PROVIDERS: ADMIT Hospitalist; ATTEND Hospitalist
DX: M10.9 Gout, unspecified (principal); J96.01 Acute respiratory failure with hypoxia; N17.9 Acute kidney failure, unspecified; I16.0 Hypertensive urgency; I10 Essential (primary) hypertension; M16.12 Unilateral primary osteoarthritis, left hip; Z96.643 Presence of artificial hip joint, bilateral; Z96.651 Presence of right artificial knee joint; R60.0 Localized edema; T46.1X5A Adverse effect of calcium-channel blockers, initial encounter; Z79.899 Other long term (current) drug therapy; Z95.1 Presence of aortocoronary bypass graft; Z90.49 Acquired absence of other specified parts of digestive tract
CPT/HCPCS: 36415; 71045; 71275; 80048; 80053; 81001; 83735; 83880; 84145; 84443; 84484; 85025; 87040; 87081; 87449; 87899; 93005; 93970; 96366; 96372; 96374; 96375; 96376; 97139; G0378; J0360; J0692; J1650; J1940; J3370; J3490; J7030